=== PATIENT | male | born 1935 | race Caucasian/White ===

== ENCOUNTER → 2017-06-20 | Outpatient (CLI) | payer OTHER ==
[~2017-06-20] MED LIST: ASPI1TAB83 PO; FOLI800T PO; LEVO25TA PO; METH1CHW PO
[2017-06-20 10:36] LABS: BASO % 0.4 %; BASO ABS # 0.02 K/uL (0-0.2); COMPLETE YES; EOS % 3.4 %; HEMATOCRIT 39.9 % (42-52); LYMPH % 40.6 %; MEAN CELL VOLUME 99.3 fL (80-100); MEAN CORPUSCULAR HEMOGLOBIN 34.1 pg (25-34); MEAN CORPUSCULAR HGB CONC 34.3 g/dl (32-36); MEAN PLATELET VOLUME 10.4 fL (7.4-10.4); MONO % 9.3 %; NEUT % 46.3 %; PLATELET COUNT 173 K/uL (130-400); RED BLOOD COUNT 4.02 M/uL (4.7-6.1); WHITE BLOOD COUNT 5.67 K/uL (4.8-10.8)
[2017-06-20 11:53] LABS: ALKALINE PHOSPHATASE 68 U/L (45-117); ALT/SGPT 22 U/L (12-78); AST/SGOT 16 U/L (15-37); BLOOD UREA NITROGEN 16 mg/dl (7-18); BUN/CREATININE RATIO 13.6 (10-20); CALCIUM 8.6 mg/dl (8.5-10.1); CARBON DIOXIDE 28 mmol/L (21-32); CHLORIDE 110 mmol/L (98-107); GLUCOSE 93 mg/dl (70-99); HDL CHOLESTEROL 47 mg/dl; POTASSIUM 4.2 mmol/L (3.5-5.1); SODIUM 141 mmol/L (136-145)
[2017-06-20 12:04] LABS: CHOLESTEROL 216 mg/dl (0-200); CHOLESTEROL/HDL RATIO 4.6; LDL CHOLESTEROL CALCULATED 146 mg/dl; TRIGLYCERIDES 114 mg/dl (0-150); VERY LOW DENSITY LIPOPROT CALC 23 mg/dl
--- NOTE | 2017-06-25 12:11 | CODING QUERY MEDICAL NECESSITY ---
SUPPORTING DIAGNOSIS NEEDED Dr. Sosa, A supporting diagnosis is required for the test/procedure performed on this patient in order for us to be reimbursed by the patient's insurance. Please provide a supporting diagnosis for the following test/procedure listed below next to the test name along with your signature. *If there is no additional diagnosis for this patient that would support the following test/procedure please document that below next to the test/procedure. Test(s)/Procedure(s) that require a supporting diagnosis: * ([id number]) B12 VITAMIN LEVEL DIAGNOSIS: DATE OF SERVICE: 06/20/17 Provider Signature: Date: Thank you Lyle Mchugh [facility] Information Management Once completed, please kindly fax back to [phone] For questions please call [phone]
== END | disposition home or self-care (01) ==
LOC: C.LABBC 07:58
PROVIDERS: ATTEND Internal Medicine
DX: D64.9 Anemia, unspecified (principal); E55.9 Vitamin D deficiency, unspecified; E89.0 Postprocedural hypothyroidism; E78.5 Hyperlipidemia, unspecified; R53.83 Other fatigue

== ENCOUNTER 2019-06-26 13:58 | Inpatient (IN) ==
--- NOTE | 2019-06-26 14:50 | XRay Report ---
XR chest 1V portable CLINICAL HISTORY: weakness COMPARISON STUDY: October 2014 FINDINGS: The heart is mildly enlarged. There is pulmonary emphysema. There is no failure. There is n o focal pulmonary consolidation.[No pleural effusions are visualized IMPRESSION: 1. Cardiomegaly and suspected pulmonary emphysema 2. No acute findings Electronically signed by: Brody Moran M.D. 06/26/2019 2:49 PM
[2019-06-26 15:02] LABS: Basophils # (auto) 0.01 K/uL (0-0.2); Basophils % (auto) 0.1 %; Eosinophils # (auto) 0.12 K/uL (0-0.5); Eosinophils % (auto) 1.5 %; Hematocrit (blood only) 36.9 % (42-52); Immature Granulocytes # (auto) 0.02 K/uL (0.00-0.02); Immature Granulocytes % (auto) 0.3 %; Lymphocytes # (auto) 1.31 K/uL (1.2-3.4); Lymphocytes % (auto) 16.7 %; Mean Corpuscular Hgb Conc 35.2 g/dL (32-36); Mean Corpuscular Volume 96.6 fL (80-100); Mean Platelet Volume 9.7 fL (7.4-10.4); Monocytes # (auto) 0.55 K/uL (0.11-0.59); Neutrophils # (auto) 5.83 K/uL (1.4-6.5); Neutrophils % (auto) 74.4 %; Platelet Count 155 K/uL (130-400); RDW Coefficient of Variation 12.9 % (11.5-14.5); RDW Standard Deviation 45.2 fL (36.4-46.3); Red Blood Count 3.82 M/uL (4.7-6.1); White Blood Count 7.84 K/uL (4.8-10.8)
[2019-06-26 15:18] LABS: Alanine Aminotransferase 27 U/L (12-78); Albumin Level 3.7 gm/dl (3.4-5.0); Aspartate Aminotransferase 19 U/L (15-37); BUN Creatinine Ratio 21.4 (10-20); Blood Urea Nitrogen 23 mg/dl (7-18); Calcium 8.8 mg/dl (8.5-10.1); Carbon Dioxide 26 mmol/L (21-32); Chloride 110 mmol/L (98-107); Creatinine Clr Calc Pharmacy 58.9 ml/min; Est GFR (African American) 72.4; Est GFR (Non-African American) 62.4; Glucose 106 mg/dl (70-99); Potassium 4.3 mmol/L (3.5-5.1); Sodium 141 mmol/L (136-145)
[2019-06-26 15:29] LABS: Albumin Globulin Ratio 1.1 (0.9-2); Alkaline Phosphatase 61 U/L (45-117); Bilirubin,Total 0.6 mg/dl (0.2-1); Globulin 3.4 gm/dl (2.5-4.0); Total Protein 7.1 gm/dl (6.4-8.2); Troponin I < 0.015 ng/ml (0-0.045)
--- NOTE | 2019-06-26 17:24 | History & Physical Report ---
Date of Service June 26, 2019 Assessment & Plan (1) Symptomatic bradycardia: Patient be kept in a monitored setting echocardiogram will be ordered, also a troponin in the morning. Normal saline at 100., Lyme titers pending PRN atropine is ordered Elective physiology consultation will be undertaken of note thyroid is replete. this pt has a systolic murmur but has a history of Rheumatic fever, will have ECHO (2) Hypothyroidism: TSH checked on presentation is normal (3) Throat cancer: Patient feels have no recurrence of this echocardiogram may help to determine to be sure there is no other structural changes of his heart. 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 Today at home he felt dizzy and nauseous , his called the ambulance brought into the hospital where he was found to have sinus bradycardia which persisted. He is symptomatic when standing up, but sitting down his blood pressure is stable even high. He denies any recent insect bites, any enfw-tia-wjuaizy medications or other medications of any kind. Remainder of his review of systems are very normal body habitus for him normal appetite normal urine normal bowels no recent infections colds or other issues. Primary Care Provider: Von Pinedo MD Allergies Allergy/AdvReac Type Severity Reaction Status Date / Time No Known Allergies Allergy Unknown * Verified 06/26/19 14:34 Home Medications Home Medications Medication Instructions Recorded Confirmed Type aspirin 81 mg PO PM #0 06/24/14 06/26/19 History levothyroxine 25 mcg PO QAM #0 tab 06/24/14 06/26/19 History Vitamin D3 1,000 mg PO DAILY 06/26/19 06/26/19 History cyanocobalamin (vitamin B-12) 1,000 mcg PO PM 06/26/19 06/26/19 History vit A,C and T-dkprgu-uvlbampy 1 tab PO PM 06/26/19 06/26/19 History [Ocuvite with Lutein] Past Med/Surg History Medical History Hypothyroidism Throat cancer Family History Mother Cancer Unknown Cancer Sister Breast cancer Social History Preferred Language: Liberian Communication Ability: Effective Beliefs That Will Affect Care: None Current Living Situation: Spouse Other Information That Helps Us Care for You: No Feels Safe at Home: Yes Safety Concerns: Feels Safe At This Time Smoking Status: Never smoker Hx Alcohol Use: Yes Alcohol type: beer and wine Hx Substance Use: No Review of Systems Review of Systems: ROS: well nourished well developed. Patient felt fatigued and weak earlier today No double vision some did have some blurry vision with his symptoms No problems with speech or swallowing No palpitations, chest pain or pressure did feel lightheaded No Wheezing or breathing issues No abdominal pain nausea vomiting diarrhea changes in appetite or weight No burning urine urine frequency or changes in color No focal joint pain or muscle pain No skin rashes or oral lesions No unusual bruising or bleeding No focused back pain or numbness or loss of strength No changes in memory or confusion Physical Exam Physical Exam: The patient appeared well nourished and normally developed. Vital signs as documented. Head exam is unremarkable. normocephalic, atraumatic Neck is without jugular venous distension, thyromegaly, or lymphademopathy Lungs are clear to auscultation and percussion. Cardiac exam reveals bradycardic regular rhythm with a systolic murmur that might be mitral Abdominal exam reveals normal bowel sounds, no masses, no organomegaly Extremities are nonedematous and both pedal pulses are present Neurologic exam is A&Ox3, no focal deficits, strength is equal bilateral Psychologically seems neither anxious or depressed Skin is warm Dry without bruises or lesions Results & Data Vital Signs (Past 12 Hours) Vital Signs Temp Pulse Resp BP Pulse Ox 06/26/19 17:01 42 L 12 166/93 H 97 06/26/19 17:00 42 L 14 97 06/26/19 16:37 44 L 19 187/76 H 98 06/26/19 16:30 44 L 17 98 06/26/19 16:00 41 L 14 97 06/26/19 15:30 40 L 10 L 95 06/26/19 15:00 39 L 8 L 97 06/26/19 14:31 40 L 15 166/57 H 97 06/26/19 14:30 41 L 15 99 06/26/19 14:13 36.4 C L 41 L 15 148/52 H 98 06/26/19 14:05 41 L 13 148/52 H 97 EKG shows sinus bradycardia Chest x-ray shows possible cardiomegaly and emphysematous change PG Care Time/CCT Total # of Minutes Spent Total Time Spent with Patient: Total time spent is greater than 50% in coordination of care (as documented) at patient's floor/unit and/or counseling patient:
[2019-06-26 17:26] LABS: Lyme Ab IgG w/WB Rflx Negative (Negative); Lyme Ab IgM w/WB Rflx Negative (Negative)
--- NOTE | 2019-06-26 18:29 | Emergency Department Note ---
ED Visit Note I contributed to the care of this patient under the supervision of Dr. Campbell . Resident Activity Tracking Resident Involvement: Resident Care Provided Care Provided: Adult ED
--- NOTE | 2019-06-26 18:42 | Emergency Department Note ---
Entered by Ty Marx acting as a scribe for Dallin Campbell MD History of Present Illness General Chief complaint: Weakness Time Seen by Provider: 06/26/19 14:06 Source: patient History of Present Illness Provider complaint: Weakness Onset (ago): hour(s) 3 Location: head Pain Consistency: + constant Maximum Pain Intensity: 0 Current Pain Intensity: 4 Relieved By: + none Associated symptoms: + diaphoresis; no chest pain, no nausea/vomiting, no shortness of breath and no syncope The patient is an 84 year old male w/ PMHx vocal cord SCC, neuropathy, heart murmur, and rheumatic heart disease who presents to the ED w/ CC of constant generalized weakness beginning around 11:00 this morning, about 3 hours ago. The patient states he also has been diaphoretic, arriving to the ED soaked in sweat. He also notes that he has had multiple dry heaving episodes. The patient reports that he has been experiencing increased fatigue for the past several months. The patient states he is concerned for a UTI given that he has had dysuria and increased frequency for the past couple of weeks. He also has so me left shoulder pain since the onset of his new symptoms today that he rates as a 4/10 but he denies any jaw pain or chest pain. The patient mentioned that he is able to walk up two flights of greater than 10 stairs without any chest pain or shortness of breath, but does note his weakness makes it more difficult. The patient denies any fevers, chills, SOB, LOC, or syncope. He does not use tobacco or alcohol. Home Medications Home Medications Medication Instructions Recorded Confirmed Type aspirin 81 mg PO PM #0 06/24/14 06/26/19 History levothyroxine 25 mcg PO QAM #0 tab 06/24/14 06/26/19 History Vitamin D3 1,000 mg PO DAILY 06/26/19 06/26/19 History cyanocobalamin (vitamin B-12) 1,000 mcg PO PM 06/26/19 06/26/19 History vit A,C and D-civley-eqkephgh 1 tab PO PM 06/26/19 06/26/19 History [Ocuvite with Lutein] Allergies Allergy/AdvReac Type Severity Reaction Status Date / Time No Known Allergies Allergy Unknown * Verified 06/26/19 14:34 Past Med/Surg History Medical History Hypothyroidism Throat cancer Family History Mother Cancer Unknown Cancer Sister Breast cancer Social History Preferred Language: Ukrainian Communication Ability: Effective Beliefs That Will Affect Care: None Current Living Situation: Spouse Other Information That Helps Us Care for You: No Feels Safe at Home: Yes Safety Concerns: Feels Safe At This Time Smoking Status: Never smoker Hx Alcohol Use: Yes Alcohol type: beer and wine Hx Substance Use: No Review of Systems See HPI for pertinent positives & negatives. and A total of 10 systems reviewed and were otherwise negative Physical Exam Vital Signs Vital Signs - 24 hr 06/26/19 14:05 06/26/19 14:13 06/26/19 14:30 Temperature 36.4 C L Temperature Source Oral Sepsis New/Unexplained Change in Mental Status No Sepsis Action Taken by Nursing No Action Required Pulse Rate 41 L 41 L 41 L Pulse Rate from SpO2 Sensor 41 L 41 L 42 L Pulse Rhythm Regular Respiratory Rate 13 15 15 Respiratory Effort / Characteristics Non-Labored Spontaneous Respiratory Depth Normal Respiratory Pattern Regular Blood Pressure 148/52 H 148/52 H Blood Pressure Mean 84 84 Pulse Oximetry 97 98 99 Oxygen Delivery Method Room Air 06/26/19 14:31 06/26/19 15:00 06/26/19 15:30 Temperature Temperature Source Sepsis New/Unexplained Change in Mental Status Sepsis Action Taken by Nursing Pulse Rate 40 L 39 L 40 L Pulse Rate from SpO2 Sensor 40 L 39 L 40 L Pulse Rhythm Respiratory Rate 15 8 L 10 L Respiratory Effort / Characteristics Respiratory Depth Respiratory Pattern Blood Pressure 166/57 H Blood Pressure Mean 93 Pulse Oximetry 97 97 95 Oxygen Delivery Method 06/26/19 16:00 06/26/19 16:24 06/26/19 16:30 Temperature Temperature Source Sepsis New/Unexplained Change in Mental Status Sepsis Action Taken by Nursing Pulse Rate 41 L 44 L Pulse Rate from SpO2 Sensor 42 L 44 L Pulse Rhythm Respiratory Rate 14 17 Respiratory Effort / Characteristics Respiratory Depth Respiratory Pattern Regular Blood Pressure Blood Pressure Mean Pulse Oximetry 97 98 Oxygen Delivery Method Room Air 06/26/19 16:37 06/26/19 17:00 06/26/19 17:01 Temperature Temperature Source Sepsis New/Unexplained Change in Mental Status Sepsis Action Taken by Nursing Pulse Rate 44 L 42 L 42 L Pulse Rate from SpO2 Sensor 44 L 42 L 42 L Pulse Rhythm Respiratory Rate 19 14 12 Respiratory Effort / Characteristics Respiratory Depth Respiratory Pattern Blood Pressure 187/76 H 166/93 H Blood Pressure Mean 113 117 Pulse Oximetry 98 97 97 Oxygen Delivery Method GENERAL: Well appearing, well nourished, NAD, non-toxic. EYE EXAM: Normal conjunctiva. PERRL, no anisocoria and EOM's grossly intact w/o pain. OROPHARYNX: Moist mucus membranes. Grossly normal dentition. NECK: Supple, no nuchal rigidity, no adenopathy, non-tender. No signs of meningismus. LUNGS: Clear to auscultation. Normal chest wall mechanics. HEART: NSR, no RG. Systolic ejection murmur. ABDOMEN: Abdomen soft, non-tender, normo-active bowel sounds, no masses, no rebound or guarding. BACK: No CVA TTP. SKIN: No rashes and no bruising. UPPER EXTREMITIES: Upper extremities are grossly normal. LOWER EXTREMITIES: No pitting edema. No calf pain. Negative Oleg's sign. NEURO EXAM: A&O x3, cranial nerves II-XII grossly intact, normal speech, 5/5 strength throughout, no sensory deficits, good finger to nose, no pronator drift, moves all 4 extremities on command w/o issue. Course 1420: Past medical records reviewed. The patient was evaluated in room B06 by the resident Musa Moreno, and a complete history and physical examination were performed. 1627: I spoke to Dr. Mary Garcia [facility] Hospitalist about the patient's case and he is going to accept the patient for further evaluation. 1640: I reevaluated the patient and updated him on the treatment plan. He full understands and is in agreement with the plan. Consultations Consultation #1: I spoke to Dr. Mary Garcia [facility] Hospitalist about the patient's case and he is going to accept the patient for further evaluation. Time: 16:27 Administered Medications Heparin Sodium (Porcine) (Heparin Sodium (Porcine)) 5,000 units SQ Q12 ANTHONY Stop: 07/26/19 20:59 Last Admin: 06/27/19 08:17 Dose: 5,000 units Documented by: [id number] Cosigned by: [id number] Admin: 06/26/19 20:59 Dose: 5,000 units Documented by: [id number] Cosigned by: [id number] Sodium Chloride (Nss 1000ml) 1,000 mls @ 100 mls/hr IV .Q10H [facility] Stop: 07/26/19 18:44 Last Admin: 06/27/19 03:37 Dose: 100 mls/hr Documented by: [id number] Infusion: 06/27/19 03:37 Dose: 100 mls/hr Documented by: [id number] Admin: 06/26/19 18:53 Dose: 100 mls/hr Documented by: [id number] Levothyroxine Sodium (Synthroid) 25 mcg PO DAILYBB [facility] Stop: 07/27/19 06:29 Last Admin: 06/27/19 05:25 Dose: 25 mcg Documented by: [id number] Medical Decision Making Medical Records Attestation: I reviewed the patient's medical records. Home Medications Current Medication List: was personally reviewed by me Laboratory Data Attestation: I reviewed the patient's lab results. Result diagrams: 06/26/19 14:51 06/27/19 05:23 Lab Results 06/26/19 06/26/19 06/26/19 Range/Units 14:46 14:51 14:51 WBC 7.84 (4.8-10.8) K/uL RBC 3.82 L (4.7-6.1) M/uL Hgb 13.0 L (14.0-18.0) g/dL Hct 36.9 L (42-52) % MCV 96.6 (80-100) fL MCH 34.0 (25-34) pg MCHC 35.2 (32-36) g/dL RDW Std Deviation 45.2 (36.4-46.3) fL RDW Coeff of Josh 12.9 (11.5-14.5) % Plt Count 155 (130-400) K/uL MPV 9.7 (7.4-10.4) fL Immature Gran % (Auto) 0.3 % Neut % (Auto) 74.4 % Lymph % (Auto) 16.7 % [place] % (Auto) 7.0 % Eos % (Auto) 1.5 % Baso % (Auto) 0.1 % Immature Gran # (Auto) 0.02 (0.00-0.02) K/uL Neut # (Auto) 5.83 (1.4-6.5) K/uL Lymph # (Auto) 1.31 (1.2-3.4) K/uL [place] # (Auto) 0.55 (0.11-0.59) K/uL Eos # (Auto) 0.12 (0-0.5) K/uL Baso # (Auto) 0.01 (0-0.2) K/uL PT (9.0-12.0) Seconds INR (0.9-1.1) Sodium 141 (136-145) mmol/L Potassium 4.3 (3.5-5.1) mmol/L Chloride 110 H (98-107) mmol/L Carbon Dioxide 26 (21-32) mmol/L Anion Gap 5.0 (3-11) BUN 23 H (7-18) mg/dl Creatinine 1.09 (0.6-1.4) mg/dl Est Cr Clr Drug Dosing 58.9 ml/min Est GFR ( Amer) 72.4 Est GFR (Non-Af Amer) 62.4 BUN/Creatinine Ratio 21.4 H (10-20) Glucose 106 H (70-99) mg/dl Calcium 8.8 (8.5-10.1) mg/dl Total Bilirubin 0.6 (0.2-1) mg/dl AST 19 (15-37) U/L ALT 27 (12-78) U/L Alkaline Phosphatase 61 (45-117) U/L Troponin I < 0.015 (0-0.045) ng/ml Total Protein 7.1 (6.4-8.2) gm/dl Albumin 3.7 (3.4-5.0) gm/dl Globulin 3.4 (2.5-4.0) gm/dl Albumin/Globulin Ratio 1.1 (0.9-2) TSH 3.730 (0.300-4.500) uIu/ml Lyme Disease IgG Ab Negative (Negative) Lyme Disease IgM Ab Negative (Negative) 06/26/19 Range/Units 14:51 WBC (4.8-10.8) K/uL RBC (4.7-6.1) M/uL Hgb (14.0-18.0) g/dL Hct (42-52) % MCV (80-100) fL MCH (25-34) pg MCHC (32-36) g/dL RDW Std Deviation (36.4-46.3) fL RDW Coeff of Josh (11.5-14.5) % Plt Count (130-400) K/uL MPV (7.4-10.4) fL Immature Gran % (Auto) % Neut % (Auto) % Lymph % (Auto) % [place] % (Auto) % Eos % (Auto) % Baso % (Auto) % Immature Gran # (Auto) (0.00-0.02) K/uL Neut # (Auto) (1.4-6.5) K/uL Lymph # (Auto) (1.2-3.4) K/uL [place] # (Auto) (0.11-0.59) K/uL Eos # (Auto) (0-0.5) K/uL Baso # (Auto) (0-0.2) K/uL PT 10.5 (9.0-12.0) Seconds INR 1.0 (0.9-1.1) Sodium (136-145) mmol/L Potassium (3.5-5.1) mmol/L Chloride (98-107) mmol/L Carbon Dioxide (21-32) mmol/L Anion Gap (3-11) BUN (7-18) mg/dl Creatinine (0.6-1.4) mg/dl Est Cr Clr Drug Dosing ml/min Est GFR ( Amer) Est GFR (Non-Af Amer) BUN/Creatinine Ratio (10-20) Glucose (70-99) mg/dl Calcium (8.5-10.1) mg/dl Total Bilirubin (0.2-1) mg/dl AST (15-37) U/L ALT (12-78) U/L Alkaline Phosphatase (45-117) U/L Troponin I (0-0.045) ng/ml Total Protein (6.4-8.2) gm/dl Albumin (3.4-5.0) gm/dl Globulin (2.5-4.0) gm/dl Albumin/Globulin Ratio (0.9-2) TSH (0.300-4.500) uIu/ml Lyme Disease IgG Ab (Negative) Lyme Disease IgM Ab (Negative) Imaging Data Radiologist's Impression: Radiology results as stated below per my review and the radiologist's interpretation: XR chest 1V portable CLINICAL HISTORY: weakness COMPARISON STUDY: October 2014 FINDINGS: The heart is mildly enlarged. There is pulmonary emphysema. There is no failure. There is no focal pulmonary consolidation.[No pleural effusions are visualized IMPRESSION: 1. Cardiomegaly and suspected pulmonary emphysema 2. No acute findings Electronically signed by: Brody Moran M.D. 06/26/2019 2:49 PM ECG Data Attestation: I personally reviewed and interpreted this ECG as follows: Indication: diaphoresis and weakness Rate (beats per minute): 39 Rhythm: sinus bradycardia Findings: + other (Wide QRS), + 1st degree AV block and + RBBB Comparison ECG Date: no prior available Blood Pressure Blood Pressure Findings: Elevated blood pressure Blood Pressure Disposition: further management by hospitalist MDM Narrative The patient is an 84 year old male w/ PMHx vocal cord SCC, neuropathy, heart murmur, and rheumatic heart disease who presents to the ED w/ CC of constant generalized weakness beginning around 11:00 this morning, about 3 hours ago. Differential Diagnosis includes but is not limited to dehydration, stroke, anemia, hypoglycemia, hyponatremia, hypernatremia, urinary tract infection, pneumonia, bronchitis, sepsis, gastroenteritis, additional abdominal pathology, metabolic abnormalities and infections. Patient was seen and evaluated the bedside after being seen and evaluated by the resident physician. The patient did present after some generalized weakness. The patient has been having some associated bradycardia. Patient is currently not on any rate control medications. The patient's blood work is fairly unremarkable with the patient does have associated bradycardia with right bundle branch block. No prior to compare to. There is concern about continued syncope given his associated bradycardia and whether or not he may benefit pacemaker placement. Did speak with the hospitalist agreed to further evaluate treat the patient. Impression & Plan Symptomatic bradycardia, Weakness Discharge Plan Visit Data *Final* Discharge Date/Time: 06/26/19 18:17 Chief Complaint: Weakness ED Provider: Dallin Campbell ED Midlevel Provider: Musa Moreno Discharge Problem: Symptomatic bradycardia, Weakness Patient Disposition: Admitted As Inpatient Discharge Instructions Interventions: ED Discharge Assessment Last Done: 06/26/19 18:17 The scribe's documentation has been prepared under my direction and personally reviewed by me in its entirety. I confirm that the note above accurately reflects all work, treatment, procedures, and medical decision making performed by me.
[2019-06-26] MEDS ORDERED: ALUMINUM/MAGNESIUM SUSP 30 ML UDC PO PRN (18:45)
[2019-06-26] MEDS ORDERED: ACETAMINOPHEN 325 MG TAB PO PRN (18:45)
[2019-06-26] MEDS ORDERED: ONDANSETRON INJ 2 MG/ML 2 ML VIAL IV PRN (18:45)
[2019-06-26] MEDS ORDERED: ATROPINE SULFATE 0.1 MG/ML 10ML SYR IV PRN (18:45)
[2019-06-26] MEDS: SODIUM CHLORIDE 0.9% 1000ML 1,000 ML IV SCH (18:53)
[2019-06-26 19:12] LABS: Prothrombin Time 10.5 Seconds (9.0-12.0)
[2019-06-26] MEDS: HEPARIN SOD 5,000 UNIT/0.5 ML VIAL SQ SCH (20:59)
[2019-06-27] MEDS: SODIUM CHLORIDE 0.9% 1000ML 1,000 ML IV SCH ×2 (03:37→17:02)
[2019-06-27] MEDS: LEVOTHYROXINE SODIUM 25 MCG TABLET PO SCH (05:25)
[2019-06-27 06:21] LABS: BUN Creatinine Ratio 17.6 (10-20); Blood Urea Nitrogen 21 mg/dl (7-18); Calcium 8.2 mg/dl (8.5-10.1); Carbon Dioxide 28 mmol/L (21-32); Chloride 112 mmol/L (98-107); Est GFR (African American) 65.1; Est GFR (Non-African American) 56.2; Glucose 95 mg/dl (70-99); Sodium 143 mmol/L (136-145)
[2019-06-27 06:25] LABS: Troponin I < 0.015 ng/ml (0-0.045)
[2019-06-27] MEDS: HEPARIN SOD 5,000 UNIT/0.5 ML VIAL SQ SCH ×2 (08:17→19:43)
--- NOTE | 2019-06-27 19:39 | Consultation Report ---
DATE OF CONSULTATION: 06/27/2019 REQUESTING PHYSICIAN: Rene Armstrong MD. GUIDE ESCORT: Manuel Nicolas DO, [facility], Cardiology for Dr. Jorge Walter who is the patient's primary accounting officer. REASON FOR CONSULTATION: Diaphoresis, nausea, and sinus bradycardia. Dear Rene: Thank you for requesting cardiology consultation on Maurilio with regards to his episode of profound diaphoresis and associated nausea. He was sitting in a chair and he all of a sudden became profusely diaphoretic and nauseous. He just did not feel well. He actually thought he might be having a heart attack. He denies any palpitations or fluttering or feeling his heart racing prior to this episode, he had been eating and drinking as he normally would. He has noted since the fall in August that he just does not feel himself. He feels unsteady when he walks and he just notes that his legs get tired if he walks a distance. When he came to the Emergency Room, he was in sinus rhythm in the 40s. There were no pauses noted. He denies any chest pain or chest pressure. He can climb a flight of stairs without any difficulty. He denies any orthostatic symptoms. He does have a little bit of lower extremity edema at the end of the day which is better in the morning. He notes in the fall on his way to a night football game, he was walking and all of a sudden he felt like his legs were walking faster than he could keep up and he ended up falling and rolling onto his shoulder. He remembers the entire event. There was no loss of consciousness. He denied any palpitations or fluttering prior to this episode. There was no tunnel vision. He had a workup with Dr. Walter including stress testing and Holter monitor which we will obtain. We do have him ambulating here in the hallway. Currently, he has done 6 laps and his heart rate has increased from 50 beats per minute to 70 beats per minute. He denies any lightheadedness or dizziness. During yesterday's episode, he denied any paresthesias of his lips or fingertips. There were no other associated prodromal symptoms. He feels well today. The rest of complete review of systems is otherwise negative. PAST MEDICAL HISTORY: 1. Hypothyroidism. 2. History of throat cancer. 3. Moderate aortic stenosis by exam with a history of rheumatic fever as a child. 4. Fall in August 2019 of questionable cause. 5. Right bundle branch block. FAMILY HISTORY: Positive for cancer and his sister with breast cancer. ALLERGIES: No known drug allergies. SOCIAL HISTORY: He is . He does drink alcohol. He is a lifetime nonsmoker. He is retired. MEDICATIONS: Reviewed in electronic medical record. PHYSICAL EXAMINATION: GENERAL: He is awake, alert, oriented x3. He is in no acute distress. He is a well-appearing male, looks younger than his stated age. VITAL SIGNS: His heart rate is 86, respirations 18, blood pressure 168/56, sat 96% on room air. HEENT: 2+ carotid upstrokes, no evidence of carotid bruits. Jugular venous pressure appeared normal. Sclerae is anicteric. His hearing is normal. LUNGS: Clear to auscultation bilaterally. No rales, rhonchi or wheezing. HEART: Regular rate and rhythm. He has a II/ crescendo-decrescendo murmur, which is mid peaking consistent with moderate aortic stenosis. ABDOMEN: Soft, nontender, nondistended. Positive bowel sounds. EXTREMITIES: No clubbing or cyanosis. Trace bilateral lower extremity edema. PSYCHIATRIC: His affect appeared appropriate. NEUROLOGIC: Grossly nonfocal. EKG sinus bradycardia, right bundle branch block with a wide QRS of 184 milliseconds with a first degree AV block of 222 milliseconds. We reviewed his outside stress echo as well as his Holter monitor, average heart rate on his Holter was 60 beats per minute. There was a short episode of paroxysmal atrial tachycardia. He describes some dizziness which occurred with sinus bradycardia. Stress echo, moderate aortic stenosis. He achieved a heart rate is 60% of maximal predicted for his age, which was only 83 beats per minute. His LV function was normal at rest and improved with exercise ruling out ischemia at the heart rate achieved. LABORATORY STUDIES: His troponins are negative x2. His chest x-ray is consistent with emphysema. DIAGNOSTIC STUDIES: 1. Episode of diaphoresis and nausea. 2. Chronotropic incompetence. 3. Resting sinus bradycardia in the high 40s and low 50s. 4. Ambulated 6 laps on the floor with a peak heart rate of 70 beats per minute in sinus rhythm. 5. Moderate aortic stenosis. 6. Negative stress echo for ischemia only at 60% of maximum predicted for his age with a max heart rate of 83 beats per minute. 7. Holter monitor with an average heart rate of only 60 beats per minute and relatively flat heart rate response consistent with chronotropic incompetence. The question is what was his episode yesterday. It is concerning he may have had a bradyarrhythmia, although at this point we cannot prove it. We do know that he has chronotropic incompetence. He also describes some degree of fatigue and heaviness in his legs when he goes to exert himself which could be related to inadequate cardiac output from chronotropic incompetence. I will discuss this case with the EP service with regards to making a decision, i.e., dual chamber pacemaker versus implantable loop recorder. The overall concern being with his first degree AV block and wide right bundle branch block. He could be having higher degree AV block which could have been the cause for his symptoms yesterday and a pacemaker may be his best option. This was discussed with the primary service as well.
--- NOTE | 2019-06-27 20:12 | Hospitalist Progress Note ---
Date of Service June 27, 2019 Assessment & Plan (1) Symptomatic bradycardia: Lengthy discussion held with Dr Nicolas from cardiology today. In light of his symptoms (exercise intolerance, feeling poorly with activity, etc), stress echo and holter monitor results from November 2018, and our telemetry findings since admission it appears he has chronotropic incompetence. TSH wnl. Lyme's negative. Other labs wnl. Echo with preserved EF. Dr Nicolas spoke briefly with Dr Ferrer from and the concensus is that pacemaker placement is indicated. This will take place on Saturday. Continue to monitor on telemetry. Avoid any AV marek agent. Can d/c fluids. Present on Admission?: Yes (2) Chronotropic incompetence: see discussion above. monitor for any higher degree AV block while awaiting pacer placement on Saturday. Present on Admission?: Yes (3) Hypothyroidism: TSH wnl. Cont synthroid. Present on Admission?: Yes (4) Throat cancer: History of such. Noted. Present on Admission?: No (5) Aortic stenosis: Moderate. Not contributing to current symptoms. Will need surveillance echo in 1-2 years as outpatient. Present on Admission?: Yes (6) DVT prophylaxis: Heparin 5000 BID care d/w Dr Nicolas from cardiology updated at bedside w/ plan of care Subjective tele overnight with HRs in the 40s nearly the entire night. with activity his HRs climb into the 50s and 60s. during a walk today the peak HR was 70. no high degree AV block or pauses. patient feeling ok today. at bedside. no presyncope or syncope. Review of Systems Constitutional: no fever Respiratory: no cough, no dyspnea and no dyspnea on exertion Cardiovascular: no chest pain, no orthopnea, no paroxysmal nocturnal dyspnea and no edema Gastrointestinal: no abdominal pain, no nausea and no vomiting Physical Exam Constitutional: well developed and well nourished; no acute distress ENMT: external ear and nose normal, oropharynx normal Respiratory: normal respiratory effort, lungs clear to auscultation Cardiovascular: Rate/Rhythm: regular rhythm and + bradycardic Heart Sounds: normal S1, normal S2 and + murmur (2/6 holosystolic murmur RUSB) Vessels: posterior tibial pulses present and dorsalis pedis pulses present; no JVD Extremities: no edema Gastrointestinal (Abdomen): normal bowel sounds, soft, nontender, no hepatosplenomegaly Psychiatric: A+Ox3, euthymic affect Results & Data Vital Signs (Past 12 Hours) Vital Signs Temp Pulse Resp BP Pulse Ox 06/27/19 18:56 36.7 C 44 L 18 138/80 95 06/27/19 15:14 36.5 C 46 L 18 149/65 H 90 06/27/19 11:36 36.7 C 61 18 149/63 H 94 Laboratory Results Laboratory Results - last 24 hr 06/27/19 05:23 Sodium 143 Potassium 4.0 Chloride 112 H Carbon Dioxide 28 Anion Gap 3.0 BUN 21 H Creatinine 1.19 Est Cr Clr Drug Dosing 54.0 Est GFR ( Amer) 65.1 Est GFR (Non-Af Amer) 56.2 BUN/Creatinine Ratio 17.6 Glucose 95 Calcium 8.2 L Troponin I < 0.015 Diagnostic Findings stress echo - 11/2018 (outpatient office records reviewed) - negative, but only hit 60% of max predicted HR. holter monitor - HR mainly 60 or less. Chronotropic incompetence suspected. 1 run of PAT. No AV block. PG Care Time/CCT Total # of Minutes Spent Total Time Spent with Patient: Total time spent is greater than 50% in coordination of care (as documented) at patient's floor/unit and/or counseling patient: (1) Hypothyroidism Hypothyroidism type: acquired Qualified Code(s): E03.9 - Hypothyroidism, unspecified (2) Aortic stenosis Cardiac valve disease etiology: etiology unspecified Qualified Code(s): I35.0 - Nonrheumatic aortic (valve) stenosis
[2019-06-28] MEDS: LEVOTHYROXINE SODIUM 25 MCG TABLET PO SCH (06:02)
[2019-06-28 06:46] LABS: Hematocrit (blood only) 36.9 % (42-52); Hemoglobin 12.9 g/dL (14.0-18.0); Mean Corpuscular Volume 97.6 fL (80-100); Mean Platelet Volume 9.8 fL (7.4-10.4); Platelet Count 155 K/uL (130-400); RDW Standard Deviation 46.1 fL (36.4-46.3); Red Blood Count 3.78 M/uL (4.7-6.1); White Blood Count 5.54 K/uL (4.8-10.8)
[2019-06-28 07:11] LABS: BUN Creatinine Ratio 14.8 (10-20); Calcium 8.3 mg/dl (8.5-10.1); Creatinine Clr Calc Pharmacy 55.7 ml/min; Est GFR (African American) 68.5; Est GFR (Non-African American) 59.1
[2019-06-28] MEDS: HEPARIN SOD 5,000 UNIT/0.5 ML VIAL SQ SCH ×2 (08:47→20:23)
--- NOTE | 2019-06-28 10:54 | Cardiology Progress Note ---
Date of Service June 28, 2019 Subjective He denies any chest pain.Denies any lightheadedness dizziness presyncope or syncope. Denies any lower extremity edema. Denies any fever chills sweats or cough. Results & Data Vital Signs (Past 12 Hours) Vital Signs Temp Pulse Pulse Resp BP Pulse Ox 06/28/19 08:00 40 L 06/28/19 07:05 36.5 C 43 L 20 149/78 H 95 06/28/19 04:02 36.7 C 42 L 18 127/63 96 06/27/19 23:03 43 L 06/27/19 23:02 36.8 C 43 L 22 177/77 H 95 GENERAL: He is awake, alert, oriented x3. He is in no acute distress. He is a well-appearing male, looks younger than his stated age. HEENT: 2+ carotid upstrokes, no evidence of carotid bruits. Jugular venous pressure appeared normal. Sclerae is anicteric. His hearing is normal. LUNGS: Clear to auscultation bilaterally. No rales, rhonchi or wheezing. HEART: Regular rate and rhythm. He has a II/ crescendo-decrescendo murmur, which is mid peaking consistent with moderate aortic stenosis. ABDOMEN: Soft, nontender, nondistended. Positive bowel sounds. EXTREMITIES: No clubbing or cyanosis. PSYCHIATRIC: His affect appeared appropriate. NEUROLOGIC: Grossly nonfocal. DIAGNOSTIC STUDIES: 1. Episode of diaphoresis and nausea. 2. Chronotropic incompetence. 3. Resting sinus bradycardia in the high 40s and low 50s. 4. Ambulated 6 laps on the floor with a peak heart rate of 70 beats per minute in sinus rhythm. 5. Moderate aortic stenosis. 6. Negative stress echo for ischemia only at 60% of maximum predicted for his age with a max heart rate of 83 beats per minute. 7. Holter monitor with an average heart rate of only 60 beats per minute and relatively flat heart rate response consistent with chronotropic incompetence. Was reviewed his LV function is normal. He has moderate aortic stenosis. He remains excessively bradycardic. His outpatient studies confirmed chronotropic incompetence. In discussion with the EP service the plan is to proceed with pacemaker implantation tomorrow. He will be n.p.o. after midnight. Hopefully we can arrange for his device implantation tomorrow.I discussed the risks and benefits of pacemaker implantation as well as limitations after the procedure and what to expect long-term. He understands the risk and wishes to proceed
--- NOTE | 2019-06-28 21:09 | Hospitalist Progress Note ---
Date of Service June 28, 2019 Assessment & Plan (1) Symptomatic bradycardia: In light of his symptoms (exercise intolerance, feeling poorly with activity, etc), stress echo and holter monitor results from November 2018, and our telemetry findings since admission showing persistent sinus bradycardia with little variation from that it appears he has chronotropic incompetence. TSH wnl. Lyme's negative. Other labs wnl. Echo with preserved EF. Dr Nicolas spoke briefly with Dr Ferrer from EP over the weekend and the concensus is that pacemaker placement is indicated. This will take place on Saturday. Continue to monitor on telemetry. Avoid any AV marek agent. NPO after MN tonight for pacer placement tomorrow by Dr Lyon or Carissa. (2) Chronotropic incompetence: see discussion above. monitor for any higher degree AV block while awaiting pacer placement on Saturday. (3) Hypothyroidism: TSH wnl. Cont synthroid. (4) Throat cancer: History of such. Noted. No issues. (5) Aortic stenosis: Moderate on echo. Not contributing to current symptoms. Will need surveillance echo in 1-2 years as outpatient. (6) DVT prophylaxis: Heparin 5000 BID but hold tomorrow AM's dose care d/w Dr Nicolas from cardiology this weekend updated at bedside w/ plan of care on 06/27/19 Subjective tele - continues w/ sinus ko, rates low 40s no pauses no block he feels good denies any cp,dyspnea,dizziness,lightheadedness, nausea "I'm ready to get my pacemaker" Review of Systems Constitutional: no fever Respiratory: no cough and no dyspnea Cardiovascular: no chest pain, no chest pain at rest, no dyspnea, no orthopnea, no paroxysmal nocturnal dyspnea, no lightheadedness and no edema Gastrointestinal: no abdominal pain Physical Exam Constitutional: well developed and well nourished; no acute distress ENMT: external ear and nose normal, oropharynx normal Respiratory: normal respiratory effort, lungs clear to auscultation Cardiovascular: Rate/Rhythm: regular rhythm and + bradycardic Heart Sounds: normal S1, normal S2 and + murmur (2/6 holosystolic murmur RUSB) Vessels: posterior tibial pulses present and dorsalis pedis pulses present; no JVD Extremities: no edema Gastrointestinal (Abdomen): normal bowel sounds, soft, nontender, no hepat osplenomegaly Psychiatric: A+Ox3, euthymic affect Results & Data Vital Signs (Past 12 Hours) Vital Signs Temp Pulse Pulse Resp BP BP Pulse Ox 06/28/19 19:26 36.7 C 45 L 18 166/76 H 96 06/28/19 15:40 46 L 06/28/19 15:35 36.4 C L 46 L 18 155/80 H 96 06/28/19 11:00 36.6 C 42 L 18 154/75 H 94 Laboratory Results Laboratory Results - last 24 hr 06/28/19 06/28/19 06:18 06:18 WBC 5.54 RBC 3.78 L Hgb 12.9 L Hct 36.9 L MCV 97.6 MCH 34.1 H MCHC 35.0 RDW Std Deviation 46.1 RDW Coeff of Josh 13.0 Plt Count 155 MPV 9.8 Sodium 140 Potassium 4.0 Chloride 108 H Carbon Dioxide 28 Anion Gap 4.0 BUN 17 Creatinine 1.14 Est Cr Clr Drug Dosing 55.7 Est GFR ( Amer) 68.5 Est GFR (Non-Af Amer) 59.1 BUN/Creatinine Ratio 14.8 Glucose 94 Calcium 8.3 L PG Care Time/CCT Total # of Minutes Spent Total Time Spent with Patient: Total time spent is greater than 50% in coordination of care (as documented) at patient's floor/unit and/or counseling patient: (1) Aortic stenosis Cardiac valve disease etiology: etiology unspecified Qualified Code(s): I35.0 - Nonrheumatic aortic (valve) stenosis (2) Hypothyroidism Hypothyroidism type: acquired Qualified Code(s): E03.9 - Hypothyroidism, unspecified
[2019-06-29] MEDS: LEVOTHYROXINE SODIUM 25 MCG TABLET PO SCH (05:51)
[2019-06-29 06:49] LABS: BUN Creatinine Ratio 13.6 (10-20); Calcium 8.8 mg/dl (8.5-10.1); Creatinine Clr Calc Pharmacy 49.3 ml/min; Est GFR (African American) 59.6; Est GFR (Non-African American) 51.4; Potassium 4.1 mmol/L (3.5-5.1)
--- NOTE | 2019-06-29 07:42 | Pre Anesthesia Assessment ---
Date of Service June 29, 2019 Pre Sedation Assessment Vital Signs Temp Pulse Pulse Resp BP BP Pulse Ox 06/29/19 07:05 36.6 C 47 L 20 184/79 H 95 06/29/19 03:30 36.5 C 45 L 18 158/75 H 95 06/28/19 23:49 45 L 06/28/19 23:40 36.4 C L 46 L 18 170/81 H 97 06/28/19 19:26 36.7 C 45 L 18 166/76 H 96 06/28/19 15:40 46 L 06/28/19 15:35 36.4 C L 46 L 18 155/80 H 96 06/28/19 11:00 36.6 C 42 L 18 154/75 H 94 06/28/19 08:00 40 L Cardiovascular + bradycardic Respiratory + respiratory effort normal Pre-Sedation Airway Assessment Smoking Status: Never smoker Hx Sleep Apnea: No Hx Difficult Intubation: No Short, Thick Neck: No Thyromental Distance: > or= 3.5 Finger Breadths Oral Cavity: + WNL Mallampati Class: III ASA: ASA3 Procedure Planning Contraindications for Sedation: none Current Medications Reviewed: Yes Notes The planned sedation has been discussed with the patient. Informed Consent was obtained. I have identified the patient, determined the appropriateness of sedation and have assessed the patient immediately prior to the procedure. All medicine(s) and interventions are by my order.
[2019-06-29] MEDS ORDERED: LIDOCAINE HCL 1% 20 ML VIAL ONE (07:50)
[2019-06-29] MEDS ORDERED: BACITRACIN INJ 50,000 UNIT VIAL ONE (07:50)
[2019-06-29] MEDS ORDERED: BUPIVACAINE 0.25% 30 ML VIAL ONE (07:50)
[2019-06-29] MEDS ORDERED: MIDAZOLAM HCL 5 MG/ML 1 ML VIAL ONE (08:10)
[2019-06-29] MEDS ORDERED: fentaNYL citrate 100 MCG/2 ML VIAL ONE (08:10)
[2019-06-29] MEDS ORDERED: CEFAZOLIN 250 MG/ML 1 GM VIAL ONE (08:11)
[2019-06-29] MEDS ORDERED: OXYCODONE HCL IR 5 MG TAB (IMMEDIATE RELEASE) PO PRN (09:15)
[2019-06-29] MEDS ORDERED: ACETAMINOPHEN 325 MG TAB PO PRN (09:15)
--- NOTE | 2019-06-29 09:15 | Procedure Note ---
Procedure Note Date of Service June 29, 2019 Note Procedure performed: Implantation of dual-chamber permanent pacemaker Staff railroad brakeman: Zafar Lyon MD Indication: The patient is an 84-year-old gentleman with a history of dizziness and exercise intolerance who was discovered to have both resting bradycardia with heart rates in the 30s as well as chronotropic incompetence. Is felt to be good candidate for permanent pacemaker due to symptomatic nonreversible sinus node dysfunction. Dual-chamber device was selected as patient is currently in sinus rhythm and wished to maintain AV synchrony. Procedure in detail: The patient was informed of the risks benefits and alternatives to the intended procedure and she wished to proceed. He was taken to the electrophysiology suite in a fasting state. A preoperative antibiotic had been administered. The patient was monitored electrocardiographically throughout today's procedure and conscious sedation was administered per protocol. The left upper pectoral area is prepped and draped in usual sterile fashion. This area was anesthetized using subcutaneous administration of a xylocaine solution. An incision was made at this site and carried down to the prepectoralis fascia using sharp dissection. Electrocautery was also employed for dissection as well as for hemostasis. A device pocket was fashioned tissues above the pectoralis muscle. Subsequent to this maneuver the left axillary vein was accessed using modified Seldinger technique. Sheaths were placed over guidewires at this site and used to facilitate passage of the pacing leads to the respective chambers under fluoroscopic guidance. This included right atrial and right ventricular leads. Adequate sensing and threshold parameters were obtained prior to Active fixation of the leads to the endocardial surface. The proximal portion leads were then sutured the prepectoral fascia using nonabsorbable suture. The device pocket was irrigated with antibiotic solution. The leads were then attached to the device. The device and leads were then placed in the pocket and pocket was closed in 3 layers of absorbable suture. Steri-Strips and sterile dressing were applied. The device was tested noninvasively prior to conclusion the procedure. The patient tolerated procedure well there no immediate complications. Equipment used: New pulse generator: Senior [employer] Manager [employer]. Model number: W1 DR 01 serial number [id number] Right atrial lead: Senior Investment Manager [employer]. Model number: 5076 serial number [id number] Right ventricular lead: Senior Investment Manager [employer]. Model number: 5076 serial number [id number] Measured data: Right atrial lead: P waves measured 1.75 mV. Pacing threshold was 1.25 V at 0.4 ms with a pacing impedance of 475 ohms Right ventricular lead: R waves measured 5.4 mV. Pacing threshold was 0.75 V 0.4 ms with a pacing impedance of 722 ohms Impression: Successful implantation of dual-chamber permanent pacemaker Coding
--- NOTE | 2019-06-29 14:44 | Hospitalist Progress Note ---
Date of Service June 29, 2019 Assessment & Plan (1) Symptomatic bradycardia: Echo with preserved EF. - S/p pacemaker with Dr. Lyon on 06/29. (2) Hypothyroidism: TSH wnl. Cont synthroid. (3) Throat cancer: History of such. Noted. No issues. (4) Aortic stenosis: Moderate on echo. Not contributing to current symptoms. - Will need surveillance echo in 1-2 years as outpatient. (5) DVT prophylaxis: Heparin 5000 BID Subjective Doing well. No major concerns. No pain in the arm. Review of Systems Review of Systems: All systems reviewed & are unremarkable except as noted in HPI & below Physical Exam Constitutional: well developed and well nourished; no acute distress ENMT: external ear and nose normal, oropharynx normal Respiratory: normal respiratory effort, lungs clear to auscultation Cardiovascular: Rate/Rhythm: regular rhythm and + bradycardic Heart Sounds: normal S1, normal S2 and + murmur (2/6 holosystolic murmur RUSB) Vessels: posterior tibial pulses present and dorsalis pedis pulses present; no JVD Extremities: no edema Gastrointestinal (Abdomen): normal bowel sounds, soft, nontender, no hepatosplenomegaly Psychiatric: A+Ox3, euthymic affect Results & Data Vital Signs (Past 12 Hours) Vital Signs Temp Pulse Pulse Resp BP Pulse Ox 06/29/19 12:00 36.6 C 61 18 162/80 H 94 06/29/19 11:30 36.6 C 60 18 148/81 H 94 06/29/19 11:10 36.4 C L 60 20 96 06/29/19 11:00 36.6 C 60 18 162/100 H 18 L 06/29/19 10:30 36.6 C 60 18 156/87 H 94 06/29/19 10:00 36.6 C 60 18 166/76 H 93 06/29/19 09:45 36.6 C 81 18 06/29/19 09:30 36.6 C 60 18 152/89 H 94 06/29/19 08:27 44 L 06/29/19 07:05 36.6 C 47 L 20 184/79 H 95 06/29/19 03:30 36.5 C 45 L 18 158/75 H 95 PG Care Time/CCT Total # of Minutes Spent Total Time Spent with Patient: Total time spent is greater than 50% in coordination of care (as documented) at patient's floor/unit and/or counseling patient: (1) Hypothyroidism Hypothyroidism type: acquired Qualified Code(s): E03.9 - Hypothyroidism, unspecified (2) Aortic stenosis Cardiac valve disease etiology: etiology unspecified Qualified Code(s): I35.0 - Nonrheumatic aortic (valve) stenosis
[2019-06-29] MEDS: CEFAZOLIN 2000MG 2,000 MG/15 ML SYR IV SCH (16:30)
[2019-06-30] MEDS: CEFAZOLIN 2000MG 2,000 MG/15 ML SYR IV SCH ×2 (01:02→07:15)
[2019-06-30 06:09] LABS: Hematocrit (blood only) 42.1 % (42-52); Hemoglobin 14.9 g/dL (14.0-18.0); Mean Corpuscular Hgb Conc 35.4 g/dL (32-36); Mean Corpuscular Volume 95.2 fL (80-100); Mean Platelet Volume 9.9 fL (7.4-10.4); Platelet Count 174 K/uL (130-400); RDW Coefficient of Variation 12.8 % (11.5-14.5); RDW Standard Deviation 44.4 fL (36.4-46.3); Red Blood Count 4.42 M/uL (4.7-6.1); White Blood Count 8.83 K/uL (4.8-10.8)
[2019-06-30] MEDS: LEVOTHYROXINE SODIUM 25 MCG TABLET PO SCH (06:34)
[2019-06-30 06:43] LABS: BUN Creatinine Ratio 15.4 (10-20); Calcium 8.5 mg/dl (8.5-10.1); Est GFR (African American) 61.9; Est GFR (Non-African American) 53.4; Potassium 3.7 mmol/L (3.5-5.1)
--- NOTE | 2019-06-30 07:33 | XRay Report ---
XR chest 2V routine CLINICAL HISTORY: 84 years-old Male presenting with EXACT TIME ORDERED Evaluate for pneumothorax and l. TECHNIQUE: PA and lateral views of the chest were obtained. COMPARISON: 06/26/2019. FINDINGS: Interval placement of a left subclavian pacer with leads in the right atrium and right ventricular ap ex. Atherosclerosis of the aortic arch. Cardiac silhouette borderline enlarged. Lungs and pleural spa mic clear. Osteopenia may be present. Slightly exaggerated thoracic kyphosis. Minimal vertebral body height loss may be present in mid thoracic levels. Upper abdomen normal. IMPRESSION: 1. Appropriately positioned to lead pacer. No pneumothorax. Electronically signed by: Musa Josue M.D. 06/30/2019 7:32 AM
--- NOTE | 2019-06-30 09:26 | Cardiology Progress Note ---
Date of Service June 30, 2019 Assessment & Plan (1) Symptomatic bradycardia: Patient underwent successful implantation of dual-chamber [employer] pacemaker yesterday. No evident complication. This point I think he is safe for discharge. I would recommend keeping the wound dry in the Steri-Strips intact for 1 week. I recommend no lifting left arm above the shoulder behind the neck for period of 6 weeks. He should follow-up in our clinic for wound check next week. Subjective Patient was feeling well this morning. No significant discomfort at the pacemaker implant site. Physical Exam Physical Exam: The device site appears to be healing well. No significant hematoma or ecchymosis. No drainage or erythema. Results & Data Vital Signs (Past 12 Hours) Vital Signs Temp Pulse Resp BP Pulse Ox 06/30/19 07:05 36.7 C 60 19 145/80 H 93 06/30/19 03:06 36.4 C L 67 16 149/80 H 95 06/29/19 23:26 36.3 C L 62 18 171/81 H 94 Diagnostic Findings Chest x-ray demonstrated good the position without evidence of pneumothorax. Device interrogation revealed good function of both atrial and ventricular leads. Normal device function.
--- NOTE | 2019-06-30 14:04 | Discharge Summary ---
Date of Service June 30, 2019 Principal Diagnosis Symptomatic bradycardia Discharge Exam Constitutional well developed and well nourished; no acute distress ENMT external ear and nose normal, oropharynx normal Respiratory normal respiratory effort, lungs clear to auscultation Cardiovascular Rate/Rhythm: regular rhythm and + bradycardic Heart Sounds: normal S1, normal S2 and + murmur (2/6 holosystolic murmur RUSB) Vessels: posterior tibial pulses present and dorsalis pedis pulses present; no JVD Extremities: no edema Gastrointestinal (Abdomen) normal bowel sounds, soft, nontender, no hepatosplenomegaly Psychiatric A+Ox3, euthymic affect Discharge Data Allergies Allergy/AdvReac Type Severity Reaction Status Date / Time No Known Allergies Allergy Unknown * Verified 06/26/19 14:34 Consultations 06/26/19 16:30 ED Decision to Admit Stat 06/26/19 18:45 Consult Cardiology Routine 06/28/19 14:08 Consult Anesthesiology Routine Procedures Performed Operation Date: 06/29/19 08:00 Actual Procedures p Pacer with A/V Leads (Dual) - Javed Lyon MD Ordered Studies 06/29/19 08:00 EP Lab Images for PACS ONCE Hospital Course (1) Symptomatic bradycardia: Echo with preserved EF. - S/p pacemaker with Dr. Lyon on 06/29. - CXR and interrogation looked good. Will follow up wtih Dr. Lyon in clinic. Discussed lifting restrictions until cleared by cardiology. (2) Hypothyroidism: TSH wnl. Cont synthroid. (3) Throat cancer: History of such. Noted. No issues. (4) Aortic stenosis: Moderate on echo. Not contributing to current symptoms. - Will need surveillance echo in 1-2 years as outpatient. (5) DVT prophylaxis: Heparin 5000 BID Total Time Total Time Spent Total Time Spent (In Minutes): 35 Total Time Includes: Examination of the Patient and Communication With Other Providers Discharge Plan Discharge Items Patient Disposition: Home - Self-Care Reason For Visit: SYMPTOMATIC BRADYCARDIA Discharge Diagnosis: SYMPTOMATIC BRADYCARDIA Discharge Goals: Decrease discomfort, Improve function, Increase independence, Improve nutritional status, Learn about illness and Therapeutic intervention Activity: Resume your previous activity Non-emergency contact: Primary Care Provider and Fruit Harvester Machine Operator Call non-emergency contact if: your symptoms worsen, your pain is not controlled and your temperature is above 100.5 Follow-up/Referrals: Von Pinedo MD [Primary Care Provider] - 07/07/19 11:30 am (Please, follow up at Dr. Shultz's office with her associate, Keyla MARCUM on SaturdayJuly 07 at 11:30 am. *If you need to change this appointment, call the office at [phone].) Javed Lyon MD [Physician] - (Dr. Lyon's office will call you to schedule an appointment next week. If you don't hear from them by , please call their office.) Diet: Regular Addtl Provider Instructions: Please do not lift anything more than 5 lbs with your left arm until cleared by cardiology. Prescriptions: Continued aspirin 81 mg Tablet,Delayed Release (Dr/Ec) 81 mg PO PM Qty: 0 RF: 0 levothyroxine 25 mcg Tablet 25 mcg PO QAM Qty: 0 RF: 0 cyanocobalamin (vitamin B-12) 500 mcg Tablet 1,000 mcg PO PM RF: 0 Ocuvite with Lutein 1,000 unit-200 mg-60 unit-2 mg Tablet 1 tab PO PM RF: 0 Vitamin D3 1,000 mg PO DAILY RF: 0 Stand-Alone Forms: [facility] Discharge Orders: Discharge Order (Routine); Ordered 06/30/19 Ordered By: Bijan Dillon Admission Data Admit Date/Time: 06/26/19 17:02 Attending Provider: Bijan Dillon Admit Provider: Alexander Hernandez Primary Care Provider: Von Pinedo V. Other Providers: Harley Ferrer ; Suhail Alberto ; Bijan Dillon Service: Telemetry Other Interventions: Discharge Summary Assessment (RN) Last Done: 06/30/19 09:44 DC Date/Time DO NOT enter until pt leaves facility: 06/30/19 10:47
== END 2019-06-30 10:47 | disposition home or self-care (01) | DRG 244 ==
LOC: ED 13:58 → SUATTDRO 17:02 → 2S 17:02

== ENCOUNTER 2021-06-13 18:22 | Observation (INO) ==
[2021-06-13] MEDS ORDERED: ASPIRIN CHEW 324 MG PO STA (18:29)
[2021-06-13 18:34] LABS: Basophils # (auto) 0.01 K/uL (0-0.2); Basophils % (auto) 0.1 %; Eosinophils # (auto) 0.16 K/uL (0-0.5); Hematocrit (blood only) 39.2 % (42-52); Hemoglobin 13.6 g/dL (14.0-18.0); Immature Granulocytes # (auto) 0.02 K/uL (0.00-0.02); Immature Granulocytes % (auto) 0.2 %; Lymphocytes # (auto) 3.65 K/uL (1.2-3.4); Lymphocytes % (auto) 45.6 %; Mean Corpuscular Hemoglobin 33.9 pg (25-34); Mean Corpuscular Hgb Conc 34.7 g/dL (32-36); Mean Corpuscular Volume 97.8 fL (80-100); Mean Platelet Volume 9.6 fL (7.4-10.4); Monocytes # (auto) 0.68 K/uL (0.11-0.59); Monocytes % (auto) 8.5 %; Neutrophils # (auto) 3.49 K/uL (1.4-6.5); Neutrophils % (auto) 43.6 %; Platelet Count 214 K/uL (130-400); RDW Coefficient of Variation 12.7 % (11.5-14.5); RDW Standard Deviation 45.7 fL (36.4-46.3); Red Blood Count 4.01 M/uL (4.7-6.1); White Blood Count 8.01 K/uL (4.8-10.8)
--- NOTE | 2021-06-13 18:40 | XRay Report ---
XR chest 1V portable CLINICAL HISTORY: Atypical chest pain COMPARISON STUDY: 07/23/2019 FINDINGS: The heart is enlarged. There is aortic tortuosity/ectasia. There is a left subclavian dual- chamber central venous pacemaker. There is no overt failure. There is no lobar consolidation. There i s slight prominence of the basilar markings likely atelectatic.[ IMPRESSION: 1. Cardiomegaly and aortic tortuosity/ectasia 2. Prominent basilar markings statistically atelectatic ACT 112: Negative or not required by law. Electronically signed by: Brody Moran M.D. 06/13/2021 6:39 PM
[2021-06-13] MEDS ORDERED: MIDAZOLAM HCL 1 MG/ML 2ML VIAL ONE (18:41)
[2021-06-13] MEDS ORDERED: fentaNYL citrate 100 MCG/2 ML VIAL ONE (18:41)
[2021-06-13] MEDS ORDERED: niCARdipine HCL INJ 2.5 MG/ML 10 ML AMP ONE (18:41)
[2021-06-13] MEDS ORDERED: HEPARIN (PORCINE) 1000 UNIT/ML 10 ML (CATH LAB USE ONLY) ONE (18:41)
[2021-06-13] MEDS ORDERED: NITROGLYCERIN/D5W 100MCG/ML 20ML SYR ONE (18:42)
[2021-06-13 18:43] LABS: Partial Thromboplastin Ratio 0.9; Partial Thromboplastin Time 22.8 Seconds (21.0-31.0); Prothrombin Time 9.9 Seconds (9.0-12.0)
[2021-06-13 18:45] LABS: iSTAT Creatinine 1.1 mg/dl (0.6-1.3); iSTAT Hemoglobin 12.9 g/dl (14.0-18.0); iSTAT Ionized Calcium 1.09 mmol/l (1.12-1.32); iSTAT Potassium 4.2 mmol/L (3.3-5.0)
[2021-06-13 18:53] LABS: Alanine Aminotransferase 24 U/L (12-78); Aspartate Aminotransferase 13 U/L (15-37); BUN Creatinine Ratio 18.4 (10-20); Blood Urea Nitrogen 19 mg/dl (7-18); Calcium 8.8 mg/dl (8.5-10.1); Carbon Dioxide 25 mmol/L (21-32); Chloride 108 mmol/L (98-107); Creatinine Clr Calc Pharmacy 59.4 ml/min; Est GFR (African American) 74.7 ml/min; Est GFR (Non-African American) 64.4 ml/min; Glucose 125 mg/dl (70-99); Lipase 99 U/L (73-393); Potassium 3.2 mmol/L (3.5-5.1); Sodium 140 mmol/L (136-145)
[2021-06-13] MEDS ORDERED: POTASSIUM CHLORIDE 10 MEQ TABCR PO STA (18:53)
--- NOTE | 2021-06-13 18:54 | Emergency Department Note ---
History of Present Illness General Chief complaint: Heart Alert History of Present Illness Provider complaint: Weakness Onset (ago): day(s) 1 Current Pain Intensity: 0 Associated symptoms: + loss of appetite, + nausea/vomiting (Nausea and dry heaving), + shortness of breath and + weakness; no chest pain, no cough, no fever/chills or no headaches 86-year-old male presents emergency department for weakness. Patient states his symptoms began earlier today. Patient reports he was having dry heaving and felt shortness of breath. Patient states his symptoms have since resolved since EMS gave him Zofran prehospital. He reports no chest pain. No headache. No loss of consciousness. No syncope. No falls. No melena hematochezia hematuria dysuria. No fevers. Patient is vaccinated gets COVID-19. EMS reported when they arrived the patient was pale diaphoretic and bradycardic and was not paced on the rebar bender. Home Medications Medication Instructions Recorded Confirmed Type aspirin 81 mg tablet,delayed 81 mg PO PM #0 06/24/14 06/13/21 History release vit A 1,000 unit-C 200 mg-E 60 1 tab PO PM 06/26/19 06/13/21 History unit-lutein 2 mg and minerals tablet (Ocuvite with Lutein) cholecalciferol (vitamin D3) 50 2,000 units PO DAILY cap 07/01/19 06/13/21 History mcg (2,000 unit) capsule cyanocobalamin (vitamin B-12) 1,000 mcg PO DAILY #30 cap 07/12/20 06/13/21 Rx 1,000 mcg capsule levothyroxine 50 mcg tablet 50 mcg PO DAILY #90 tab 09/19/20 06/13/21 Rx ascorbic acid (vitamin C) 500 mg 500 mg PO DAILY cap 01/19/21 06/13/21 History capsule saw palm 160 mg-vit E 100 1 tab PO DAILY 06/13/21 06/13/21 History unit-selen 100 vwx-przj-qfesjq-pygeum tablet (One-Song) Allergies Allergy/AdvReac Type Severity Reaction Status Date / Time duloxetine [From Cymbalta] AdvReac Intermediate swelling Verified 06/13/21 18:33 legs gabapentin AdvReac Intermediate Swelling Verified 06/13/21 18:33 legs Past Med/Surg History Medical History History of cardiac pacemaker Hypothyroidism Left-sided epistaxis Lower extremity edema Right knee pain Sensorineural hearing loss (SNHL) of left ear with restricted hearing of right ear Tear of meniscus, medial Throat cancer Surgical History History of surgery laryngeal surgery to strip vocal cords Status post partial thyroidectomy Substernal Partial Thyroidectomy Family History Mother Cancer Unknown Cancer Sister Breast cancer Father Myocardial infarction Other No family history of bleeding disorder Denies family history of Ovarian cancer Prostate cancer Colorectal cancer Social History Smoking Status: Never smoker Second Hand Exposure: Yes; Hx Alcohol Use: Yes Alcohol type: beer Hx Substance Use: No Preferred Language: [place]guill[place] Communication Ability: Effective Stone Paver Required: No Beliefs That Will Affect Care: None marital status: Current Living Situation: Spouse current occupational status: retired Other Information That Helps Us Care for You: No Feels Safe at Home: Yes Safety Concerns: Feels Safe At This Time Childhood Exposure to Second-Hand Smoke: Yes Dental Care, Regularly: Yes Physical Activity Frequency: 1-2 Times per Week Seatbelt Use: always Sunscreen Use: Yes Assistive Devices: Denture - Upper, Hearing Aid - Left and Hearing Aid - Right Review of Systems A total of 10 systems reviewed and were otherwise negative Physical Exam Vital Signs Vital Signs - 24 hr 06/13/21 18:26 06/13/21 18:43 06/13/21 19:11 Temperature 36.7 C Temperature Source Oral Pulse Rate 74 69 64 Pulse Rate from SpO2 Sensor 74 69 64 Respiratory Rate 19 13 13 Respiratory Effort / Characteristics Non-Labored Respiratory Depth Normal Respiratory Pattern Regular Blood Pressure 185/90 H 180/102 H 158/80 H Blood Pressure Mean 121 128 106 Pulse Oximetry 96 97 95 Oxygen Delivery Method Room Air Sepsis Recent Fever Within 48 Hours No Sepsis New/Unexplained Change in Mental Status No Sepsis Action Taken by Nursing No Action Required 06/13/21 19:30 06/13/21 20:00 Temperature Temperature Source Pulse Rate 60 64 Pulse Rate from SpO2 Sensor 60 Respiratory Rate 14 15 Respiratory Effort / Characteristics Respiratory Depth Respiratory Pattern Blood Pressure 162/76 H 155/89 H Blood Pressure Mean 104 111 Pulse Oximetry 96 94 Oxygen Delivery Method Room Air Sepsis Recent Fever Within 48 Hours Sepsis New/Unexplained Change in Mental Status Sepsis Action Taken by Nursing Physical Exam GENERAL: He is oriented to person, place, and time. He appears well-developed and well-nourished. He does not appear distressed. HENT: Exam performed. - Head: Normocephalic and atraumatic. - Right Ear: External ear normal. No mastoid tenderness. - Left Ear: External ear normal. No mastoid tenderness. - Mouth/Throat: The oropharynx is clear and moist. No trismus in the jaw. No dental abscesses or uvula swelling. No oropharyngeal exudate or tonsillar abscesses. EYES: Conjunctivae and EOM are normal. Pupils are equal, round, and reactive to light. Right eye exhibits no discharge. Left eye exhibits no discharge. No scleral icterus. NECK: Normal range of motion. Neck supple. No JVD present. No spinous process tenderness present. No carotid bruit present. No rigidity. No tracheal deviation and normal range of motion present. No Brudzinski's sign and no Kernig's sign noted. CV: Normal rate, regular rhythm, normal heart sounds and intact distal pulses. There is no peripheral edema. Palpable radial pulses bue. PULM/CHEST: Effort normal and breath sounds normal. No respiratory distress. No stridor. He has no wheezes. He has no rales. - Chest Wall: He exhibits no tenderness. ABD: The abdomen is soft. Bowel sounds are normal. He has no distension. No mass is present. There is no tenderness. There is no rebound, no guarding, no Dalton's sign and no tenderness at McBurney's point. Rovsig negative. MUSC/SKEL: Normal range of motion. There is no peripheral edema, tenderness or deformity. LYMPH: No cervical adenopathy. NEURO: He is alert and oriented to person, place, and time. He has normal strength. No cranial nerve deficit or sensory deficit. GCS eye subscore is 4. GCS verbal subscore is 5. GCS motor subscore is 6. Cerebellar tests wnl. SKIN: Skin is warm and dry. He is not diaphoretic. PSYCH: He has a normal mood and affect. Behavior is normal. Judgment and thought content normal. Course Course 1806: Received a call from EMS about inbound patient with weakness. EMS reports that the patient was bradycardic in the 30s and diaphoretic. They reported no pacemaker capture on their monitor or EKG. They reported that the patient was not having any chest pain but was having nausea and did administer Zofran. EKG was transmitted in the EKG at 1806 showed sinus rhythm with a rate of 60. Right bundle branch block present. ST elevation in leads I and aVL. When compared to previous EKGs there was no significant ST elevation. EMS transferred over another EKG which continues to show the ST elevation in leads I and aVL. Heart alert was paged. 1822: The patient was evaluated in room B1. A complete history and physical exam was performed Cardiac monitoring: An order was placed for continuous cardiac monitoring. The monitor shows a rate of 70 with paced rhythm 1826: Patient is now showing paced rhythm on the monitor. EKG done now does not show ST elevation. 1833: Pacemaker was interrogated Akbar for [employer] states that the device looks good and there are no issues with any arrhythmias or any battery failure. 1846: Dr. Robertson cardiology at bedside and states no need for Bow Making Machine Operator at this time. Patient is currently reporting no chest pain difficulty breathing and states his weakness feels much better. We will plan on admitting the patient to the hospitalist service and cardiology will evaluate the patient in the morning. Administered Medications Aspirin (Aspirin 81 Mg Ectab) 81 mg PO PM ANTHONY Stop: 07/14/21 00:00 Last Admin: 06/14/21 00:46 Dose: 81 mg Documented by: [id number] Heparin Sodium (Porcine) (Heparin Sod 5,000 Unit/0.5 Ml Vial) 5,000 units SQ Q 12 ANTHONY Stop: 07/14/21 00:00 Last Admin: 06/14/21 00:46 Dose: 5,000 units Documented by: [id number] Potassium Chloride/Sodium Chloride (Normal Saline W/20 Meq Kcl) 20 meq in 1,000 mls @ 80 mls/hr IV .[id number] ANTHONY Stop: 06/14/21 12:14 Last Admin: 06/14/21 00:46 Dose: 80 mls/hr Documented by: [id number] Multivitamins/Minerals (Cerovite Adv Formula Tab) 1 tab PO PM ANTHONY Stop: 07/14/21 00:00 Last Admin: 06/14/21 00:46 Dose: 1 tab Documented by: [id number] Discontinued Medications Aspirin (Aspirin Chew 324 Mg) 324 mg PO NOW STA Stop: 06/13/21 18:30 Last Admin: 06/13/21 18:38 Dose: 324 mg Documented by: [id number] Fentanyl Citrate (Fentanyl Citrate 100 Mcg/2 Ml Vial) Confirm Administered Dose 100 mcg .ROUTE .STK-MED ONE Stop: 06/13/21 18:42 Last Admin: 06/13/21 23:20 Dose: Not Given Documented by: [id number] Heparin Sodium (Porcine) (Heparin (Porcine) 1000 Unit/Ml 10 Ml (Bow Making Machine Operator Use Only)) Confirm Administered Dose 10,000 units .ROUTE .STK-MED ONE Stop: 06/13/21 18:42 Last Admin: 06/13/21 23:21 Dose: Not Given Documented by: [id number] Heparin Sodium/Sodium Chloride (Heparin In Nss Infusion 1000 Unit/500 Ml (2 U/Ml) Bag) Confirm Administered Dose 3,000 units IV .STK-MED ONE Stop: 06/13/21 18:43 Last Admin: 06/13/21 23:21 Dose: Not Given Documented by: [id number] Midazolam HCl (Midazolam Hcl 1 Mg/Ml 2ml Vial) Confirm Administered Dose 2 mg .ROUTE .STK-MED ONE Stop: 06/13/21 18:42 Last Admin: 06/13/21 23:21 Dose: Not Given Documented by: [id number] Nicardipine HCl (Nicardipine Hcl Inj 2.5 Mg/Ml 10 Ml Amp) Confirm Administered Dose 25 mg .ROUTE .STK-MED ONE Stop: 06/13/21 18:42 Last Admin: 06/13/21 23:21 Dose: Not Given Documented by: [id number] Nitroglycerin/Dextrose (Nitroglycerin/D5w 100mcg/Ml 20ml Syr) Confirm Administered Dose 2,000 mcg .ROUTE .STK-MED ONE Stop: 06/13/21 18:43 Last Admin: 06/13/21 23:21 Dose: Not Given Documented by: [id number] Potassium Chloride (Potassium Chloride 10 Meq Tabcr) 40 meq PO NOW STA Stop: 06/13/21 18:54 Last Admin: 06/13/21 19:06 Dose: 40 meq Documented by: [id number] Medical Decision Making Laboratory Data Result diagrams: 06/13/21 18:30 06/13/21 18:30 Lab Results 06/13/21 06/13/21 06/13/21 Range/Units 18:30 18:30 18:30 WBC 8.01 (4.8-10.8) K/uL RBC 4.01 L (4.7-6.1) M/uL Hgb 13.6 L (14.0-18.0) g/dL POC Hgb (14.0-18.0) g/dl Hct 39.2 L (42-52) % POC Hct (42-52) % MCV 97.8 (80-100) fL MCH 33.9 (25-34) pg MCHC 34.7 (32-36) g/dL RDW Std Deviation 45.7 (36.4-46.3) fL RDW Coeff of Josh 12.7 (11.5-14.5) % Plt Count 214 (130-400) K/uL MPV 9.6 (7.4-10.4) fL Immature Gran % (Auto) 0.2 % Neut % (Auto) 43.6 % Lymph % (Auto) 45.6 % [place] % (Auto) 8.5 % Eos % (Auto) 2.0 % Baso % (Auto) 0.1 % Neut # (Auto) 3.49 (1.4-6.5) K/uL Lymph # (Auto) 3.65 H (1.2-3.4) K/uL [place] # (Auto) 0.68 H (0.11-0.59) K/uL Eos # (Auto) 0.16 (0-0.5) K/uL Baso # (Auto) 0.01 (0-0.2) K/uL Immature Gran # (Auto) 0.02 (0.00-0.02) K/uL PT 9.9 (9.0-12.0) Seconds INR 1.0 (0.9-1.1) APTT 22.8 (21.0-31.0) Seconds PTT Ratio 0.9 POC Sodium (135-144) mmol/L Sodium 140 (136-145) mmol/L POC Potassium (3.3-5.0) mmol/L Potassium 3.2 L (3.5-5.1) mmol/L POC Chloride (101-112) mmol/L Chloride 108 H (98-107) mmol/L Carbon Dioxide 25 (21-32) mmol/L POC Total CO2 (24-31) mmol/L Anion Gap 7.0 (3-11) POC Anion Gap (16-25) mmol/L POC BUN (7-18) mg/dl BUN 19 H (7-18) mg/dl Creatinine 1.05 (0.6-1.4) mg/dl POC Creatinine (0.6-1.3) mg/dl Est Cr Clr Drug Dosing 59.4 ml/min Est GFR ( Amer) 74.7 ml/min Est GFR (Non-Af Amer) 64.4 ml/min BUN/Creatinine Ratio 18.4 (10-20) Glucose 125 H (70-99) mg/dl POC Glucose (other) (70-99) mg/dl Calcium 8.8 (8.5-10.1) mg/dl POC Ioniz Calcium Tato (1.12-1.32) mmol/l Total Bilirubin 0.5 (0.2-1) mg/dl AST 13 L (15-37) U/L ALT 24 (12-78) U/L Alkaline Phosphatase 75 (45-117) U/L Troponin I < 0.015 (0-0.045) ng/ml Total Protein 7.9 (6.4-8.2) gm/dl Albumin 4.0 (3.4-5.0) gm/dl Globulin 3.9 (2.5-4.0) gm/dl Albumin/Globulin Ratio 1.0 (0.9-2) Lipase 99 (73-393) U/L COVID-19 Eval Order SARS-CoV-2 (PCR) (Negative) Blood Type Antibody Screen 06/13/21 06/13/21 06/13/21 Range/Units 18:31 18:33 19:00 WBC (4.8-10.8) K/uL RBC (4.7-6.1) M/uL Hgb (14.0-18.0) g/dL POC Hgb 12.9 L (14.0-18.0) g/dl Hct (42-52) % POC Hct 38 L (42-52) % MCV (80-100) fL MCH (25-34) pg MCHC (32-36) g/dL RDW Std Deviation (36.4-46.3) fL RDW Coeff of Josh (11.5-14.5) % Plt Count (130-400) K/uL MPV (7.4-10.4) fL Immature Gran % (Auto) % Neut % (Auto) % Lymph % (Auto) % [place] % (Auto) % Eos % (Auto) % Baso % (Auto) % Neut # (Auto) (1.4-6.5) K/uL Lymph # (Auto) (1.2-3.4) K/uL [place] # (Auto) (0.11-0.59) K/uL Eos # (Auto) (0-0.5) K/uL Baso # (Auto) (0-0.2) K/uL Immature Gran # (Auto) (0.00-0.02) K/uL PT (9.0-12.0) Seconds INR (0.9-1.1) APTT (21.0-31.0) Seconds PTT Ratio POC Sodium 141 (135-144) mmol/L Sodium (136-145) mmol/L POC Potassium 4.2 (3.3-5.0) mmol/L Potassium (3.5-5.1) mmol/L POC Chloride 103 (101-112) mmol/L Chloride (98-107) mmol/L Carbon Dioxide (21-32) mmol/L POC Total CO2 26 (24-31) mmol/L Anion Gap (3-11) POC Anion Gap 18.0 (16-25) mmol/L POC BUN 25 H (7-18) mg/dl BUN (7-18) mg/dl Creatinine (0.6-1.4) mg/dl POC Creatinine 1.1 (0.6-1.3) mg/dl Est Cr Clr Drug Dosing ml/min Est GFR ( Amer) ml/min Est GFR (Non-Af Amer) ml/min BUN/Creatinine Ratio (10-20) Glucose (70-99) mg/dl POC Glucose (other) 115 H (70-99) mg/dl Calcium (8.5-10.1) mg/dl POC Ioniz Calcium Tato 1.09 L (1.12-1.32) mmol/l Total Bilirubin (0.2-1) mg/dl AST (15-37) U/L ALT (12-78) U/L Alkaline Phosphatase (45-117) U/L Troponin I (0-0.045) ng/ml Total Protein (6.4-8.2) gm/dl Albumin (3.4-5.0) gm/dl Globulin (2.5-4.0) gm/dl Albumin/Globulin Ratio (0.9-2) Lipase (73-393) U/L COVID-19 Eval Order Covid19 at [facility] SARS-CoV-2 (PCR) (Negative) Blood Type Cancelled Antibody Screen Cancelled 06/13/21 Range/Units 19:00 WBC (4.8-10.8) K/uL RBC (4.7-6.1) M/uL Hgb (14.0-18.0) g/dL POC Hgb (14.0-18.0) g/dl Hct (42-52) % POC Hct (42-52) % MCV (80-100) fL MCH (25-34) pg MCHC (32-36) g/dL RDW Std Deviation (36.4-46.3) fL RDW Coeff of Josh (11.5-14.5) % Plt Count (130-400) K/uL MPV (7.4-10.4) fL Immature Gran % (Auto) % Neut % (Auto) % Lymph % (Auto) % [place] % (Auto) % Eos % (Auto) % Baso % (Auto) % Neut # (Auto) (1.4-6.5) K/uL Lymph # (Auto) (1.2-3.4) K/uL [place] # (Auto) (0.11-0.59) K/uL Eos # (Auto) (0-0.5) K/uL Baso # (Auto) (0-0.2) K/uL Immature Gran # (Auto) (0.00-0.02) K/uL PT (9.0-12.0) Seconds INR (0.9-1.1) APTT (21.0-31.0) Seconds PTT Ratio POC Sodium (135-144) mmol/L Sodium (136-145) mmol/L POC Potassium (3.3-5.0) mmol/L Potassium (3.5-5.1) mmol/L POC Chloride (101-112) mmol/L Chloride (98-107) mmol/L Carbon Dioxide (21-32) mmol/L POC Total CO2 (24-31) mmol/L Anion Gap (3-11) POC Anion Gap (16-25) mmol/L POC BUN (7-18) mg/dl BUN (7-18) mg/dl Creatinine (0.6-1.4) mg/dl POC Creatinine (0.6-1.3) mg/dl Est Cr Clr Drug Dosing ml/min Est GFR ( Amer) ml/min Est GFR (Non-Af Amer) ml/min BUN/Creatinine Ratio (10-20) Glucose (70-99) mg/dl POC Glucose (other) (70-99) mg/dl Calcium (8.5-10.1) mg/dl POC Ioniz Calcium Tato (1.12-1.32) mmol/l Total Bilirubin (0.2-1) mg/dl AST (15-37) U/L ALT (12-78) U/L Alkaline Phosphatase (45-117) U/L Troponin I (0-0.045) ng/ml Total Protein (6.4-8.2) gm/dl Albumin (3.4-5.0) gm/dl Globulin (2.5-4.0) gm/dl Albumin/Globulin Ratio (0.9-2) Lipase (73-393) U/L COVID-19 Eval Order SARS-CoV-2 (PCR) NEGATIVE (Negative) Blood Type Antibody Screen Imaging Data Radiologist's Impression: Chest X-Ray 06/13/21 18:25 XR chest 1V portable CLINICAL HISTORY: Atypical chest pain COMPARISON STUDY: 07/23/2019 FINDINGS: The heart is enlarged. There is aortic tortuosity/ectasia. There is a left subclavian dual-chamber central venous pacemaker. There is no overt failure. There is no lobar consolidation. There is slight prominence of the basilar markings likely atelectatic.[ IMPRESSION: 1. Cardiomegaly and aortic tortuosity/ectasia 2. Prominent basilar markings statistically atelectatic ACT 112: Negative or not required by law. Electronically signed by: Brody Moran M.D. 06/13/2021 6:39 PM Prescription Drug Monitoring Prescription Drug Findings: Prehospital EKG at 1806: Sinus rhythm with rate of 61. Right bundle branch block present. ST elevation in leads I and aVL. Prehospital EKG at 181: Sinus rhythm with a rate of 80. Right bundle branch block present. ST elevation in leads I and aVL. EKG at 182: Paced rhythm with a rate of 72. AK 348 QRS 162 QTC 540. Right bundle branch block present. No ST elevation or ST depression. MDM Narrative 180: Received a call from EMS about inbound patient with weakness. EMS reports that the patient was bradycardic in the 30s and diaphoretic. They reported no pacemaker capture on their monitor or EKG. They reported that the patient was not having any chest pain but was having nausea and did administer Zofran. EKG was transmitted in the EKG at 180 showed sinus rhythm with a rate of 60. Right bundle branch block present. ST elevation in leads I and aVL. When compared to previous EKGs there was no significant ST elevation. EMS transferred over another EKG which continues to show the ST elevation in leads I and aVL. Heart alert was paged. 1822: The patient was evaluated in room B1. A complete history and physical exam was performed Cardiac monitoring: An order was placed for continuous cardiac monitoring. The monitor shows a rate of 70 with paced rhythm 1826: Patient is now showing paced rhythm on the monitor. EKG done now does not show ST elevation. 1833: Pacemaker was interrogated Akbar for [employer] states that the device looks good and there are no issues with any arrhythmias or any battery failure. 1846: Dr. Robertson cardiology at bedside and states no need for Bow Making Machine Operator at this time. Patient is currently reporting no chest pain difficulty breathing and states his weakness feels much better. We will plan on admitting the patient to the hospitalist service and cardiology will evaluate the patient in the morning. Impression & Plan Weakness Discharge Plan Visit Data Chief Complaint: Heart Alert ED Provider: Edson Posadas Discharge Problem: Weakness Patient Disposition: Admitted As Inpatient Discharge Instructions Interventions: ED Discharge Assessment Last Done: 06/13/21 22:58
[2021-06-13 18:57] LABS: Alkaline Phosphatase 75 U/L (45-117); Bilirubin,Total 0.5 mg/dl (0.2-1); Globulin 3.9 gm/dl (2.5-4.0); Total Protein 7.9 gm/dl (6.4-8.2); Troponin I < 0.015 ng/ml (0-0.045)
--- NOTE | 2021-06-13 19:34 | History & Physical Report ---
Date of Service June 13, 2021 Assessment & Plan (1) Weakness: Plan: Episode of nausea and vomiting of unclear etiology. Initial episode of diarrhea early in the morning Likely an issue with viral gastroenteritis that is self resolving at this time We will place on cardiac diet. Patient reports his generalized weakness has significantly proved while in the ED. (2) Chest discomfort: Plan: May just be secondary to nausea vomiting earlier. Admitting to telemetry as noted. (3) Pacemaker: Plan: EKG with noted atrial pacing, which was initially interpreted as a possible STEMI. The patient will be admitted to telemetry for serial cardiac enzymes, serial EKG's, cardiac rhythm monitoring and a 2-D echocardiogram with Dopplers. Consult his resident hall director Dr. Robertson (4) Hyperlipidemia: Plan: On no specific treatment Check a fasting lipid panel (5) Hypothyroidism, postablative: Plan: Continue levothyroxine 50 mcg daily (6) Chronic venous insufficiency: Plan: Adequately controlled with diet and exercise (7) Symptomatic bradycardia: Plan: Pacer above as noted History of Present Illness Chief Complaint: The patient presents to the emergency department via EMS as a heart alert due to concerns regarding possible STEMI, which was not confirmed in the ED by Interventional cardiology Dr. 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 The patient reports early in the morning today he developed diarrhea, he did have lunch around 130 this afternoon, he then developed nausea vomiting around 5:00 this evening, along with significant generalized weakness, and EMS was called at that time. EMS did EKG which initially looked to have ST elevations in lateral limb leads suggestive of STEMI, however, this was thought to be more related to atrial pacing as noted by Dr. Robertson in the emergency department. It was thus felt the patient did not need to undergo urgent catheterization, and advised admission to telemetry overnight for close follow-up. Allergies Allergy/AdvReac Type Severity Reaction Status Date / Time duloxetine [From Cymbalta] AdvReac Intermediate swelling Verified 06/13/21 18:33 legs gabapentin AdvReac Intermediate Swelling Verified 06/13/21 18:33 legs Home Medications Medication Instructions Recorded Confirmed Type aspirin 81 mg tablet,delayed 81 mg PO PM #0 06/24/14 06/13/21 History release vit A 1,000 unit-C 200 mg-E 60 1 tab PO PM 06/26/19 06/13/21 History unit-lutein 2 mg and minerals tablet (Ocuvite with Lutein) cholecalciferol (vitamin D3) 50 2,000 units PO DAILY cap 07/01/19 06/13/21 History mcg (2,000 unit) capsule cyanocobalamin (vitamin B-12) 1,000 mcg PO DAILY #30 cap 07/12/20 06/13/21 Rx 1,000 mcg capsule levothyroxine 50 mcg tablet 50 mcg PO DAILY #90 tab 09/19/20 06/13/21 Rx ascorbic acid (vitamin C) 500 mg 500 mg PO DAILY cap 01/19/21 06/13/21 History capsule saw palm 160 mg-vit E 100 1 tab PO DAILY 06/13/21 06/13/21 History unit-selen 100 [id number]-jpjdzi-[id number] tablet (Prostate Health) Past Med/Surg History Medical History History of cardiac pacemaker Hypothyroidism Left-sided epistaxis Lower extremity edema Right knee pain Sensorineural hearing loss (SNHL) of left ear with restricted hearing of right ear Tear of meniscus, medial Throat cancer Surgical History History of surgery laryngeal surgery to strip vocal cords Status post partial thyroidectomy Substernal Partial Thyroidectomy Family History Mother Cancer Unknown Cancer Sister Breast cancer Father Myocardial infarction Other No family history of bleeding disorder Denies family history of Ovarian cancer Prostate cancer Colorectal cancer Social History Smoking Status: Never smoker Second Hand Exposure: Yes; Hx Alcohol Use: Yes (1 glass daily ) Alcohol type: wine Hx Substance Use: No Preferred Language: Tajik Communication Ability: Effective Beliefs That Will Affect Care: None marital status: Current Living Situation: Spouse current occupational status: retired Feels Safe at Home: Yes Childhood Exposure to Second-Hand Smoke: Yes Dental Care, Regularly: Yes Physical Activity Frequency: 1-2 Times per Week Seatbelt Use: always Sunscreen Use: Yes Assistive Devices: None Review of Systems Review of Systems: The patient denies palpitations, shortness of breath, dyspnea on exertion, cough, lower extremity swelling, sore throat, fevers, chills, sweats, abdominal pain, pelvic pain, blood in urine or stool, dysuria, urinary frequency or urgency, lightheadedness, dizziness, headache, memory loss, loss of consciousness, rash, abnormal bruising or bleeding, imbalance, focal weakness, numbness or tingling in arms or legs, generalized arthralgias or myalgias, back or neck pain, or night sweats. The review of systems is otherwise negative other than for that already noted above, and at least 10 systems have been reviewed. Physical Exam Physical Exam: The patient is awake, alert and oriented 3, well developed and well nourished, normocephalic and atraumatic, lying in bed and in no acute distress. HEENT--PERRL, EOMI, mucous membranes and oropharynx dry. Neck--supple. No JVD. No bruits. Thyroid normal, trachea midline, no adenopathy. Heart--normal S1 and S2. No murmurs, rubs or gallops. Lungs--clear bilaterally, no respiratory distress, no accessory muscle use. Abdomen--normal bowel sounds and soft. Nontender. Nondistended. Extremities--no cyanosis or clubbing. No edema. Dermatologic--normal skin turgor, normal color, no abnormal lymph nodes, no rash. Neurologic--cranial nerves II through XII grossly intact. Rheumatologic--normal range of motion. Psychiatric--normal affect. Results & Data Results & Data ([facility]) Vital Signs (Past 12 Hours) Vital Signs Temp Pulse Resp BP Pulse Ox 06/13/21 19:11 64 13 158/80 H 95 06/13/21 18:43 69 13 180/102 H 97 06/13/21 18:26 98.1 F 74 19 185/90 H 96 Laboratory Results Laboratory Results WBC 8.01 K/uL (4.8-10.8) 06/13/21 18:30 RBC 4.01 M/uL (4.7-6.1) L 06/13/21 18:30 Hgb 13.6 g/dL (14.0-18.0) L 06/13/21 18:30 POC Hgb 12.9 g/dl (14.0-18.0) L 06/13/21 18:33 Hct 39.2 % (42-52) L 06/13/21 18:30 POC Hct 38 % (42-52) L 06/13/21 18:33 MCV 97.8 fL (80-100) 06/13/21 18:30 MCH 33.9 pg (25-34) 06/13/21 18:30 MCHC 34.7 g/dL (32-36) 06/13/21 18:30 RDW Std Deviation 45.7 fL (36.4-46.3) 06/13/21 18: RDW Coeff of Josh 12.7 % (11.5-14.5) 06/13/21 18: Plt Count 214 K/uL (130-400) 06/13/21 18: MPV 9.6 fL (7.4-10.4) 06/13/21 18:30 Immature Gran % (Auto) 0.2 % 06/13/21 18:30 Neut % (Auto) 43.6 % 06/13/21 18:30 Lymph % (Auto) 45.6 % 06/13/21 18:30 [place] % (Auto) 8.5 % 06/13/21 18:30 Eos % (Auto) 2.0 % 06/13/21 18:30 Baso % (Auto) 0.1 % 06/13/21 18:30 Neut # (Auto) 3.49 K/uL (1.4-6.5) 06/13/21 18:30 Lymph # (Auto) 3.65 K/uL (1.2-3.4) H 06/13/21 18:30 [place] # (Auto) 0.68 K/uL (0.11-0.59) H 06/13/21 18:30 Eos # (Auto) 0.16 K/uL (0-0.5) 06/13/21 18:30 Baso # (Auto) 0.01 K/uL (0-0.2) 06/13/21 18:30 Immature Gran # (Auto) 0.02 K/uL (0.00-0.02) 06/13/21 18:30 PT 9.9 Seconds (9.0-12.0) 06/13/21 18:30 INR 1.0 (0.9-1.1) 06/13/21 18:30 APTT 22.8 Seconds (21.0-31.0) 06/13/21 18:30 PTT Ratio 0.9 06/13/21 18:30 POC Sodium 141 mmol/L (135-144) 06/13/21 18:33 Sodium 140 mmol/L (136-145) 06/13/21 18:30 POC Potassium 4.2 mmol/L (3.3-5.0) 06/13/21 18:33 Potassium 3.2 mmol/L (3.5-5.1) L 06/13/21 18:30 POC Chloride 103 mmol/L (101-112) 06/13/21 18:33 Chloride 108 mmol/L (98-107) H 06/13/21 18:30 Carbon Dioxide 25 mmol/L (21-32) 06/13/21 18:30 POC Total CO2 26 mmol/L (24-31) 06/13/21 18:33 Anion Gap 7.0 (3-11) 06/13/21 18:30 POC Anion Gap 18.0 mmol/L (16-25) 06/13/21 18:33 POC BUN 25 mg/dl (7-18) H 06/13/21 18:33 BUN 19 mg/dl (7-18) H 06/13/21 18:30 Creatinine 1.05 mg/dl (0.6-1.4) 06/13/21 18:30 POC Creatinine 1.1 mg/dl (0.6-1.3) 06/13/21 18:33 Est Cr Clr Drug Dosing 59.4 ml/min 06/13/21 18:30 Est GFR ( Amer) 74.7 ml/min 06/13/21 18:30 Est GFR (Non-Af Amer) 64.4 ml/min 06/13/21 18:30 BUN/Creatinine Ratio 18.4 (10-20) 06/13/21 18:30 Glucose 125 mg/dl (70-99) H 06/13/21 18:30 POC Glucose (other) 115 mg/dl (70-99) H 06/13/21 18:33 Calcium 8.8 mg/dl (8.5-10.1) 06/13/21 18:30 POC Ioniz Calcium Tato 1.09 mmol/l (1.12-1.32) L 06/13/21 18:33 Total Bilirubin 0.5 mg/dl (0.2-1) 06/13/21 18:30 AST 13 U/L (15-37) L 06/13/21 18:30 ALT 24 U/L (12-78) 06/13/21 18:30 Alkaline Phosphatase 75 U/L (45-117) 06/13/21 18:30 Troponin I < 0.015 ng/ml (0-0.045) 06/13/21 18:30 Total Protein 7.9 gm/dl (6.4-8.2) 06/13/21 18:30 Albumin 4.0 gm/dl (3.4-5.0) 06/13/21 18:30 Globulin 3.9 gm/dl (2.5-4.0) 06/13/21 18:30 Albumin/Globulin Ratio 1.0 (0.9-2) 06/13/21 18:30 Lipase 99 U/L (73-393) 06/13/21 18:30 COVID-19 Eval Order Covid19 at [facility] 06/13/21 19:00 SARS-CoV-2 (PCR) NEGATIVE (Negative) 06/13/21 19:00 Blood Type Cancelled 06/13/21 18:31 Antibody Screen Cancelled 06/13/21 18:31 Impressions Chest X-Ray 06/13/21 18:25 XR chest 1V portable CLINICAL HISTORY: Atypical chest pain COMPARISON STUDY: 07/23/2019 FINDINGS: The heart is enlarged. There is aortic tortuosity/ectasia. There is a left subclavian dual-chamber central venous pacemaker. There is no overt failu re. There is no lobar consolidation. There is slight prominence of the basilar markings likely atelectatic.[ IMPRESSION: 1. Cardiomegaly and aortic tortuosity/ectasia 2. Prominent basilar markings statistically atelectatic ACT 112: Negative or not required by law. Electronically signed by: Brody Moran M.D. 06/13/2021 6:39 PM Code Status & VTE Plan Code Status Full code PG Care Time/CCT Total # of Minutes Spent Total Time Spent with Patient: Total time spent is greater than 50% in coordination of care (as documented) at patient's floor/unit and/or counseling patient: Coding Level of Care Code INT OBSERVATION CARE 70M LVL 3 Diagnoses Weakness R53.1 Chronic venous insufficiency I87.2 Pacemaker Z95.0 Hyperlipidemia E78.5 Hypothyroidism, postablative E89.0 Symptomatic bradycardia R00.1 Chest discomfort R07.89
[2021-06-13] MEDS ORDERED: ACETAMINOPHEN 325 MG TAB PO PRN (23:18)
[2021-06-13] MEDS ORDERED: ONDANSETRON INJ 2 MG/ML 2 ML VIAL IV PRN (23:18)
[2021-06-13] MEDS ORDERED: NITROGLYCERIN SL 0.4 MG/TAB TAB SL PRN (23:18)
[2021-06-13] MEDS ORDERED: NSS + 20MEQ KCL 20 MEQ/1,000 ML BAG IV SCH (23:45)
[2021-06-14] MEDS ORDERED: CEROVITE ADV FORMULA TAB PO SCH
[2021-06-14] MEDS ORDERED: ASPIRIN 81 MG ECTAB PO SCH
[2021-06-14] MEDS: HEPARIN SOD 5,000 UNIT/0.5 ML VIAL SQ SCH ×2 (00:46→10:00)
[2021-06-14] MEDS ORDERED: LEVOTHYROXINE SODIUM 50 MCG TABLET PO SCH (06:30)
[2021-06-14 07:31] LABS: Basophils # (auto) 0.01 K/uL (0-0.2); Basophils % (auto) 0.2 %; Eosinophils % (auto) 1.6 %; Hematocrit (blood only) 37.5 % (42-52); Hemoglobin 12.8 g/dL (14.0-18.0); Immature Granulocytes # (auto) 0.01 K/uL (0.00-0.02); Immature Granulocytes % (auto) 0.2 %; Mean Corpuscular Hemoglobin 33.4 pg (25-34); Mean Corpuscular Hgb Conc 34.1 g/dL (32-36); Mean Corpuscular Volume 97.9 fL (80-100); Mean Platelet Volume 9.5 fL (7.4-10.4); Monocytes # (auto) 0.62 K/uL (0.11-0.59); Monocytes % (auto) 9.8 %; Neutrophils % (auto) 58.2 %; Platelet Count 182 K/uL (130-400); RDW Standard Deviation 46.4 fL (36.4-46.3); Red Blood Count 3.83 M/uL (4.7-6.1); White Blood Count 6.34 K/uL (4.8-10.8)
[2021-06-14 08:17] LABS: Albumin Level 3.3 gm/dl (3.4-5.0); BUN Creatinine Ratio 16.2 (10-20); Bilirubin,Total 0.6 mg/dl (0.2-1); Calcium 8.4 mg/dl (8.5-10.1); Creatinine Clr Calc Pharmacy 65.5 ml/min; Est GFR (African American) 87.6 ml/min; Est GFR (Non-African American) 75.6 ml/min; Globulin 3.4 gm/dl (2.5-4.0); Potassium 4.1 mmol/L (3.5-5.1); Total Protein 6.7 gm/dl (6.4-8.2)
[2021-06-14] MEDS ORDERED: ASCORBIC ACID 500 MG TAB PO SCH (09:00)
[2021-06-14] MEDS ORDERED: CHOLECALCIFEROL 1,000 UNITS 25 MCG TAB PO SCH (09:00)
[2021-06-14] MEDS ORDERED: NON-FORMULARY MEDICATION (Saw-Vit E-Sod Sel-Lyc-Beta-Pyg [Prostate Health] 160-100-100 mg- PO SCH (09:00)
[2021-06-14] MEDS ORDERED: CYANOCOBALAMIN 500 MCG TABLET (VITAMIN B-12) PO SCH (09:00)
--- NOTE | 2021-06-14 09:12 | Cardiology Consultation ---
Date of Consultation June 14, 2021 Assessment & Plan (1) Weakness: Mr. 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 Patient cannot think of anything that triggered this and he had been in his usual state of health leading up to the onset of symptoms. Patient is not on any new medications nor has his diet changed recently. He denies any fever, chills, abdominal pain or diarrhea. He denies any chest pain, heaviness, tightness, or pressure when he was feeling poorly yesterday. After the patient was started on IVF's and he received supplemental potassium -- he felt significantly better and his symptoms have completely resolved. He feels fine today and is wondering when he will be sent home. Patient has not had any angina pectoris or anginal equivalent symptoms, overt signs or symptoms of heart failure, nor has he had any symptoms suggestive of dysrhythmia. His cardiac evaluation is unremarkable -- His Troponin I is < 0.015 ng/ml x 3. Telemetry shows intermittent atrial pacing with 1st degree AV block with an IVCD, HR in the 60's and 70's overnight and this morning. EKG 06/14/21 shows an atrially paced rhythm with a marked 1st degree AV block and RBBB pattern, no acute changes. His pacemaker appears to be functioning appropriately. No further ischemic evaluation is necessary at this time. Patient is stable from a cardiac standpoint to be discharged to home. (2) Nausea & vomiting: -- Symptoms have completely resolved. -- Resume usual diet. -- Anti-emetic as needed. (3) Symptomatic bradycardia: Trifascicular Block with Chronotropic Incompetence s/p Medtronic Mikayla XT DR Dual Chamber Pacemaker June 2019. -- Follows with Dr. Lyon. (4) Aortic stenosis: Moderate aortic stenosis on 03/28/21 Echocardiogram -- stable compared to previous echo. -- Asymptomatic. -- Continue surveillance Echocardiograms. (5) Aortic regurgitation: Mild aortic insufficiency on 03/28/21 Echocardiogram -- improved compared to previous Echo. -- Asymptomatic. -- Continue surveillance Echocardiograms. (6) Pacemaker: Trifascicular Block with Chronotropic Incompetence s/p Medtronic [place] XT Dual Chamber Pacemaker June 2019. -- Appears to be functioning appropriately on telemetry monitoring. -- Patient has an appointment with Dr. Lyon coming up in the near future. He was advised to keep this appointment. History of Present Illness Reason for Consultation: -- Weakness. -- Paced Rhythm. Attending Physician: Warren Munoz DO History of Present Illness Mr. 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 Patient cannot think of anything that triggered this and he had been in his usual state of health leading up to the onset of symptoms. Patient is not on any new medications nor has his diet changed recently. He denies any fever, chills, abdominal pain or diarrhea. He denies any chest pain, heaviness, tightness, or pressure when he was feeling poorly yesterday. After the patient was started on IVF's and he received supplemental potassium -- he felt significantly better and has not had any recurrence of symptoms since then. He feels fine today and is wondering when he will be sent home. Allergies Allergy/AdvReac Type Severity Reaction Status Date / Time duloxetine [From Cymbalta] AdvReac Intermediate swelling Verified 06/13/21 18:33 legs gabapentin AdvReac Intermediate Swelling Verified 06/13/21 18:33 legs Home Medications Medication Instructions Recorded Confirmed Type aspirin 81 mg tablet,delayed 81 mg PO PM #0 06/24/14 06/13/21 History release vit A 1,000 unit-C 200 mg-E 60 1 tab PO PM 06/26/19 06/13/21 History unit-lutein 2 mg and minerals tablet (Ocuvite with Lutein) cholecalciferol (vitamin D3) 50 2,000 units PO DAILY cap 07/01/19 06/13/21 History mcg (2,000 unit) capsule cyanocobalamin (vitamin B-12) 1,000 mcg PO DAILY #30 cap 07/12/20 06/13/21 Rx 1,000 mcg capsule levothyroxine 50 mcg tablet 50 mcg PO DAILY #90 tab 09/19/20 06/13/21 Rx ascorbic acid (vitamin C) 500 mg 500 mg PO DAILY cap 01/19/21 06/13/21 History capsule saw palm 160 mg-vit E 100 1 tab PO DAILY 06/13/21 06/13/21 History unit-selen 100 lrn-uhft-lwvevl-pygeum tablet (Prostate [employer]) Patient History Medical History History of cardiac pacemaker Hypothyroidism Left-sided epistaxis Lower extremity edema Right knee pain Sensorineural hearing loss (SNHL) of left ear with restricted hearing of right ear Tear of meniscus, medial Throat cancer Surgical History History of surgery laryngeal surgery to strip vocal cords Status post partial thyroidectomy Substernal Partial Thyroidectomy Family History Mother Cancer Unknown Cancer Sister Breast cancer Father Myocardial infarction Other No family history of bleeding disorder Denies family history of Ovarian cancer Prostate cancer Colorectal cancer Social History Smoking Status: Never smoker Second Hand Exposure: Yes; Hx Alcohol Use: Yes Alcohol type: beer Hx Substance Use: No Preferred Language: Lithuanian Communication Ability: Effective Hosiery Mender Required: No Beliefs That Will Affect Care: None marital status: Current Living Situation: Spouse current occupational status: retired Other Information That Helps Us Care for You: No Feels Safe at Home: Yes Safety Concerns: Feels Safe At This Time Childhood Exposure to Second-Hand Smoke: Yes Dental Care, Regularly: Yes Physical Activity Frequency: 1-2 Times per Week Seatbelt Use: always Sunscreen Use: Yes Assistive Devices: Denture - Upper, Hearing Aid - Left and Hearing Aid - Right Review of Systems Review of Systems: 10 point review of systems is negative except for what is mentioned in the HPI. Physical Exam Physical Exam: GENERAL: Patient in no acute distress. HEENT: Head is atraumatic, normocephalic. EOM's intact. Facies symmetric. No perioral cyanosis. NECK: No JVD. JVP is at the level of the clavicle sitting upright. Carotid upstrokes are + 2 bilaterally. No bruits are noted. CHEST/LUNGS: Clear to auscultation throughout all lung ta. No wheezes, rales, or crackles. CVS: S1 and S2 are regular with a grade 3/6 basal systolic murmur which radiates to the suprasternal notch and left sternal border. No obvious diastolic murmurs, gallops, or rubs. PMI is nondisplaced. No lifts, heaves, or thrills. No abdominal aortic or renal bruits. Palpable pacemaker generator is present left subclavian fossa. Surgical incision is closed, well-healed. ABDOMINAL EXAM: Bowel sounds are present. No masses, organomegaly, or tenderness. EXTREMITIES: No clubbing or cyanosis. No edema. Intact posterior tibial and radial pulses bilaterally. NEUROLOGIC EXAM: Patient is awake, alert, and oriented. Pleasant and cooperative. Answers questions appropriately. Speech is clear. Normal movement in all 4 extremities. Gait pattern was not assessed. ECHOCARDIOGRAM 03/28/21: -- Normal LV size and systolic function. -- LVEF 55% to 60%. -- Mild concentric LVH. -- Moderate aortic stenosis. -- Mild aortic insufficiency. -- When compared to prior Echo; AI has improved. EKG 06/14/21: -- Atrially paced rhythm with a marked 1st degree AV block and RBBB pattern. -- No acute changes. Results & Data ([facility]) Vital Signs (Past 12 Hours) Vital Signs Temp Pulse Pulse Resp BP BP Pulse Ox 06/14/21 07:03 36.7 C 60 18 155/82 H 95 06/14/21 03:58 36.6 C 63 18 132/74 98 06/13/21 23:55 36.7 C 66 18 148/92 H 97 06/13/21 23:20 62 06/13/21 23:06 36.5 C 70 18 185/78 H 06/13/21 22:30 61 14 157/91 H 96 06/13/21 22:00 73 19 158/83 H 95 07/20/21 21:30 60 16 146/73 H 94 Laboratory Results Laboratory Results - last 24 hr 06/13/21 06/13/21 06/13/21 18:30 18:30 18:30 WBC 8.01 RBC 4.01 L Hgb 13.6 L POC Hgb Hct 39.2 L POC Hct MCV 97.8 MCH 33.9 MCHC 34.7 RDW Std Deviation 45.7 RDW Coeff of Josh 12.7 Plt Count 214 MPV 9.6 Immature Gran % (Auto) 0.2 Neut % (Auto) 43.6 Lymph % (Auto) 45.6 [place] % (Auto) 8.5 Eos % (Auto) 2.0 Baso % (Auto) 0.1 Neut # (Auto) 3.49 Lymph # (Auto) 3.65 H [place] # (Auto) 0.68 H Eos # (Auto) 0.16 Baso # (Auto) 0.01 Immature Gran # (Auto) 0.02 PT 9.9 INR 1.0 APTT 22.8 PTT Ratio 0.9 POC Sodium Sodium 140 POC Potassium Potassium 3.2 L POC Chloride Chloride 108 H Carbon Dioxide 25 POC Total CO2 Anion Gap 7.0 POC Anion Gap POC BUN BUN 19 H Creatinine 1.05 POC Creatinine Est Cr Clr Drug Dosing 59.4 Est GFR ( Amer) 74.7 Est GFR (Non-Af Amer) 64.4 BUN/Creatinine Ratio 18.4 Glucose 125 H POC Glucose (other) Calcium 8.8 POC Ioniz Calcium Tato Total Bilirubin 0.5 AST 13 L ALT 24 Alkaline Phosphatase 75 Troponin I < 0.015 Total Protein 7.9 Albumin 4.0 Globulin 3.9 Albumin/Globulin Ratio 1.0 Lipase 99 COVID-19 Eval Order SARS-CoV-2 (PCR) Blood Type Antibody Screen 06/13/21 06/13/21 06/13/21 18:31 18:33 19:00 WBC RBC Hgb POC Hgb 12.9 L Hct POC Hct 38 L MCV MCH MCHC RDW Std Deviation RDW Coeff of Josh Plt Count MPV Immature Gran % (Auto) Neut % (Auto) Lymph % (Auto) [place] % (Auto) Eos % (Auto) Baso % (Auto) Neut # (Auto) Lymph # (Auto) [place] # (Auto) Eos # (Auto) Baso # (Auto) Immature Gran # (Auto) PT INR APTT PTT Ratio POC Sodium 141 Sodium POC Potassium 4.2 Potassium POC Chloride 103 Chloride Carbon Dioxide POC Total CO2 26 Anion Gap POC Anion Gap 18.0 POC BUN 25 H BUN Creatinine POC Creatinine 1.1 Est Cr Clr Drug Dosing Est GFR ( Amer) Est GFR (Non-Af Amer) BUN/Creatinine Ratio Glucose POC Glucose (other) 115 H Calcium POC Ioniz Calcium Tato 1.09 L Total Bilirubin AST ALT Alkaline Phosphatase Troponin I Total Protein Albumin Globulin Albumin/Globulin Ratio Lipase COVID-19 Eval Order Covid19 at [facility] SARS-CoV-2 (PCR) Blood Type Cancelled Antibody Screen Cancelled 06/13/21 06/13/21 06/14/21 19:00 23:31 07:13 WBC 6.34 RBC 3.83 L Hgb 12.8 L POC Hgb Hct 37.5 L POC Hct MCV 97.9 MCH 33.4 MCHC 34.1 RDW Std Deviation 46.4 H RDW Coeff of Josh 13.0 Plt Count 182 MPV 9.5 Immature Gran % (Auto) 0.2 Neut % (Auto) 58.2 Lymph % (Auto) 30.0 [place] % (Auto) 9.8 Eos % (Auto) 1.6 Baso % (Auto) 0.2 Neut # (Auto) 3.70 Lymph # (Auto) 1.90 [place] # (Auto) 0.62 H Eos # (Auto) 0.10 Baso # (Auto) 0.01 Immature Gran # (Auto) 0.01 PT INR APTT PTT Ratio POC Sodium Sodium POC Potassium Potassium POC Chloride Chloride Carbon Dioxide POC Total CO2 Anion Gap POC Anion Gap POC BUN BUN Creatinine POC Creatinine Est Cr Clr Drug Dosing Est GFR ( Amer) Est GFR (Non-Af Amer) BUN/Creatinine Ratio Glucose POC Glucose (other) Calcium POC Ioniz Calcium Tato Total Bilirubin AST ALT Alkaline Phosphatase Troponin I < 0.015 Total Protein Albumin Globulin Albumin/Globulin Ratio Lipase COVID-19 Eval Order SARS-CoV-2 (PCR) NEGATIVE Blood Type Antibody Screen 06/14/21 06/14/21 07:13 07:13 WBC RBC Hgb POC Hgb Hct POC Hct MCV MCH MCHC RDW Std Deviation RDW Coeff of Josh Plt Count MPV Immature Gran % (Auto) Neut % (Auto) Lymph % (Auto) [place] % (Auto) Eos % (Auto) Baso % (Auto) Neut # (Auto) Lymph # (Auto) [place] # (Auto) Eos # (Auto) Baso # (Auto) Immature Gran # (Auto) PT INR APTT PTT Ratio POC Sodium Sodium 140 POC Potassium Potassium 4.1 D POC Chloride Chloride 111 H Carbon Dioxide 28 POC Total CO2 Anion Gap 1.0 L POC Anion Gap POC BUN BUN 15 Creatinine 0.92 POC Creatinine Est Cr Clr Drug Dosing 65.5 Est GFR ( Amer) 87.6 Est GFR (Non-Af Amer) 75.6 BUN/Creatinine Ratio 16.2 Glucose 88 POC Glucose (other) Calcium 8.4 L POC Ioniz Calcium Tato Total Bilirubin 0.6 AST 13 L ALT 21 Alkaline Phosphatase 61 Troponin I < 0.015 Total Protein 6.7 Albumin 3.3 L Globulin 3.4 Albumin/Globulin Ratio 1.0 Lipase COVID-19 Eval Order SARS-CoV-2 (PCR) Blood Type Antibody Screen Diagnostic Findings CXR 06/13/21: The heart is enlarged. There is aortic tortuosity/ectasia. There is a left subclavian dual-chamber central venous pacemaker. There is no overt failure. There is no lobar consolidation. There is slight prominence of the basilar markings likely atelectatic. IMPRESSION: 1. Cardiomegaly and aortic tortuosity/ectasia. 2. Prominent basilar markings statistically atelectatic. Medications Administered Medications aspirin 81 mg tablet,delayed release 81 mg PO PM #0 06/24/14 [History Confirmed 06/13/21] vit A 1,000 unit-C 200 mg-E 60 unit-lutein 2 mg and minerals tablet (Ocuvite with Lutein) 1 tab PO PM 06/26/19 [History Confirmed 06/13/21] cholecalciferol (vitamin D3) 50 mcg (2,000 unit) capsule 2,000 units PO DAILY cap 07/01/19 [History Confirmed 06/13/21] cyanocobalamin (vitamin B-12) 1,000 mcg capsule 1,000 mcg PO DAILY #30 cap 07/12/20 [Rx Confirmed 06/13/21] levothyroxine 50 mcg tablet 50 mcg PO DAILY #90 tab 09/19/20 [Rx Confirmed 06/13/21] ascorbic acid (vitamin C) 500 mg capsule 500 mg PO DAILY cap 01/19/21 [History Confirmed 06/13/21] saw palm 160 mg-vit E 100 unit-selen 100 sip-mbqc-numdfz-pygeum tablet (Prostate Health) 1 tab PO DAILY 06/13/21 [History Confirmed 06/13/21] Home Medications Acetaminophen (Acetaminophen 325 Mg Tab) 650 mg PO Q4H PRN PRN Reason: Pain or Fever Stop: 07/13/21 23:17 Ascorbic Acid (Ascorbic Acid 500 Mg Tab) 500 mg PO DAILY ANTHONY Stop: 07/14/21 08:59 Aspirin (Aspirin 81 Mg Ectab) 81 mg PO PM ANTHONY Stop: 07/14/21 00:00 Last Admin: 06/14/21 00:46 Dose: 81 mg Documented by: Cyanocobalamin (Cyanocobalamin 500 Mcg Tablet (Vitamin B-12)) 1,000 mcg PO DAILY ANTHONY Stop: 07/14/21 08:59 Heparin Sodium (Porcine) (Heparin Sod 5,000 Unit/0.5 Ml Vial) 5,000 units SQ Q12 ANTHONY Stop: 07/14/21 00:00 Last Admin: 06/14/21 00:46 Dose: 5,000 units Documented by: Potassium Chloride/Sodium Chloride (Normal Saline W/20 Meq Kcl) 20 meq in 1,000 mls @ 80 mls/hr IV .[id number] ANTHONY Stop: 06/14/21 12:14 Last Admin: 06/14/21 00:46 Dose: 80 mls/hr Documented by: Levothyroxine Sodium (Levothyroxine Sodium 50 Mcg Tablet) 50 mcg PO DAILYBB ANTHONY Stop: 07/14/21 06:29 Last Admin: 06/14/21 05:25 Dose: 50 mcg Documented by: Multivitamins/Minerals (Cerovite Adv Formula Tab) 1 tab PO PM ANTHONY Stop: 07/14/21 00:00 Last Admin: 06/14/21 00:46 Dose: 1 tab Documented by: Nitroglycerin (Nitroglycerin Sl 0.4 Mg/Tab Tab) 0.4 mg SL UD PRN PRN Reason: Chest Pain Stop: 07/13/21 23:17 Ondansetron HCl (Ondansetron Inj 2 Mg/Ml 2 Ml Vial) 4 mg IV Q6H PRN PRN Reason: Nausea Stop: 07/13/21 23:17 Vitamin D (Cholecalciferol 1,000 Units 25 Mcg Tab) 2,000 units PO DAILY ANTHONY Stop: 07/14/21 08:59 PG Care Time/CCT Total # of Minutes Spent Total Time Spent with Patient: Total time spent is greater than 50% in coordination of care (as documented) at patient's floor/unit and/or counseling patient:35 Coding Level of Care Code INT OBSERVATION CARE 70M LVL 3 Diagnoses Weakness R53.1 Nausea & vomiting R11.2 Symptomatic bradycardia R00.1 Aortic stenosis I35.0 Cardiac valve disease etiology: etiology unspecified Aortic regurgitation I35.1 Pacemaker Z95.0 Time Spent (min) 50 (1) Aortic stenosis Cardiac valve disease etiology: etiology unspecified Qualified Code(s): I35.0 - Nonrheumatic aortic (valve) stenosis
--- NOTE | 2021-06-14 12:51 | Discharge Summary ---
Date of Service June 14, 2021 Admission HPI Per Admitting Provider The patient is an 86-year-old male with a past medical history including carotid artery disease, chronic venous insufficiency, aortic regurgitation, SNHL, pacemaker, anemia, HNP L4-5, malignant neoplasm of larynx, rheumatic fever, hyperlipidemia, post ablative hypothyroidism, aortic stenosis, symptomatic bradycardia status post pacemaker, and malignant laryngeal neoplasm. The patient reports early in the morning today he developed diarrhea, he did have lunch around 130 this afternoon, he then developed nausea vomiting around 5:00 this evening, along with significant generalized weakness, and EMS was called at that time. EMS did EKG which initially looked to have ST elevations in lateral limb leads suggestive of STEMI, however, this was thought to be more related to atrial pacing as noted by Dr. Robertson in the emergency department. It was thus felt the patient did not need to undergo urgent catheterization, and advised admission to telemetry overnight for close follow-up. Principal Diagnosis Transient weakness Discharge Exam Constitutional WD/WN, vitals as above Neck trachea midline, no thyromegaly Respiratory normal respiratory effort, lungs clear to auscultation Cardiovascular RRR, no murmur, no edema Gastrointestinal (Abdomen) normal bowel sounds, soft, nontender, no hepatosplenomegaly Musculoskeletal no cyanosis or clubbing, extremities motor strength 5/5 Skin no rashes, warm and dry Neurologic patellar DTR's 2+ bilat, sensation intact and PERRL, EOMI, accommodation nl, no face palsy, no dysarthria Psychiatric A+Ox3, euthymic affect Discharge Data Allergies Allergy/AdvReac Type Severity Reaction Status Date / Time duloxetine [From Cymbalta] AdvReac Intermediate swelling Verified 06/13/21 18:33 legs gabapentin AdvReac Intermediate Swelling Verified 06/13/21 18:33 legs Consultations 06/13/21 19:03 ED Decision to Admit Stat 06/13/21 23:18 Consult Cardiology Routine Procedures Performed Operation Date: 06/13/21 18:45 <No data on this case meets the specified criteria> Ordered Studies 06/13/21 18:40 CL Cath Imgs for PACS use only Stat Hospital Course (1) Weakness: Episode of nausea and vomiting of unclear etiology. Initial episode of diarrhea early in the morning Likely an issue with viral gastroenteritis that is self resolving at this time no further issues while here, eating well, drinking more, ambulating independently (2) Chest discomfort: May just be secondary to nausea vomiting earlier. Admitting to telemetry as noted -- no issues initially called a heart alert in the ED but this was just atrial pacing spikes (3) Pacemaker: EKG with noted atrial pacing, which was initially interpreted as a poss ible STEMI. The patient will be admitted to telemetry for serial cardiac enzymes - negative troponin Consult his bellmaker Dr. Marcelo alejandro for discharge (4) Hyperlipidemia: On no specific treatment Check a fasting lipid panel (5) Hypothyroidism, postablative: Continue levothyroxine 50 mcg daily (6) Chronic venous insufficiency: Adequately controlled with diet and exercise (7) Symptomatic bradycardia: Pacer above as noted Total Time Total Time Spent Total Time Spent (In Minutes): 20 Discharge Plan Discharge Items Patient Disposition: Home - Self-Care Reason For Visit: WEAKNESS Discharge Diagnosis: Transient weakness, resolved Condition on Discharge: Good Goals: stay well nourished, well hydrated Activity: Resume your previous activity Driving/Machine Use: No limitations Weightbearing: Full weightbearing Non-emergency contact: Primary Care Provider Call non-emergency contact if: you have any medication questions Follow-up/Referrals: Von Pinedo MD [Primary Care Provider] - 06/22/21 10:30 am (one week) Diet: Heart Healthy Addtl Attending Provider Instructions: Medications: no changes I reviewed prior lab work, your potassium has never been low, always > 4.0 and there was some discretion in the ED as one value was 3.2 and the other was 4.2 I would just get labs in about a week with your PCP to see if potassium is stable Weakness, sweats, nausea symptoms have resolved, no obvious etiology on work up with lab work and imaging appreciate cardiology consult, pacemaker is working well, no concerns for acute coronary syndrome, can be discharged from cardiology perspective stay well hydrated, well nourished, follow up with PCP in a week Pending Studies at Discharge: No Stand-Alone Forms: My [employer], Smoking Cessation Medications and DC Order Prescriptions: Continued aspirin 81 mg Tablet,Delayed Release (Dr/Ec) 81 mg PO PM Qty: 0 RF: 0 cyanocobalamin (vitamin B-12) 1,000 mcg capsule 1,000 mcg PO DAILY Qty: 30 RF: 0 levothyroxine 50 mcg tablet 50 mcg PO DAILY Qty: 90 RF: 3 ascorbic acid (vitamin C) 500 mg capsule 500 mg PO DAILY RF: 0 cholecalciferol (vitamin D3) 2,000 unit capsule 2,000 units PO DAILY RF: 0 Ocuvite with Lutein 1,000 unit-200 mg-60 unit-2 mg Tablet 1 tab PO PM RF: 0 Prostate Health 160-100-100 mg-unit-mcg Tablet 1 tab PO DAILY RF: 0 Discharge Orders: Discharge Order (Routine); Ordered 06/14/21 Ordered By: Warren Munoz Admission Data Admit Date/Time: 06/13/21 20:18 Attending Provider: Warren Munoz Admit Provider: Scott Gray Primary Care Provider: Von Pinedo V. Other Providers: Scott Gray ; Javed Robertson Other Interventions: Discharge Summary Assessment (RN) Last Done: 06/14/21 13:20 Coding Level of Care Code 59729 OBS Care - Discharge Diagnoses Weakness R53.1 Chest discomfort R07.89 Pacemaker Z95.0 Hyperlipidemia E78.5 Hypothyroidism, postablative E89.0 Chronic venous insufficiency I87.2 Symptomatic bradycardia R00.1
--- NOTE | 2021-06-14 16:14 | Electrocardiogram Report ---
Test Reason : Blood Pressure : / mmHG Vent. Rate : 072 BPM Atrial Rate : 072 BPM P-R Int : 348 ms QRS Dur : 162 ms QT Int : 494 ms P-R-T Axes : 004 -27 -12 degrees QTc Int : 540 ms Atrial-paced rhythm with prolonged AV conduction Right bundle branch block Abnormal ECG When compared with ECG of 26-JUN-2019 14:59, Electronic atrial pacemaker has replaced Sinus rhythm Vent. rate has increased BY 33 BPM Nonspecific T wave abnormality no longer evident in Anterior leads QT has lengthened Confirmed by Bernabe Mays ([id number]) on 06/14/2021 4:13:59 PM Referred By: REFERRED SELF Confirmed By:Bernabe Mays
--- NOTE | 2021-06-14 16:22 | Electrocardiogram Report ---
Test Reason : Blood Pressure : / mmHG Vent. Rate : 060 BPM Atrial Rate : 060 BPM P-R Int : 344 ms QRS Dur : 194 ms QT Int : 496 ms P-R-T Axes : 029 -66 004 degrees QTc Int : 496 ms Atrial-paced rhythm with prolonged AV conduction Left axis deviation Right bundle branch block Abnormal ECG When compared with ECG of 13-JUN-2021 18:26, (unconfirmed) QRS duration has increased Confirmed by Bernabe Mays ([id number]) on 06/14/2021 4:22:08 PM Referred By: REFERRED SELF Confirmed By:Bernabe Mays
== END 2021-06-14 14:00 | disposition home or self-care (01) ==
LOC: 2S 18:22 → ED 18:22 → SUATTDRO 20:18 → 2S 22:58